=== PATIENT | male | born 1955 | race Caucasian/White ===

== ENCOUNTER 2018-03-13 14:23 | Observation (INO) | payer SELFPAY ==
[2018-03-13] VITALS (12 sets, daily range): BP systolic 123–145; BP diastolic 76–87; PULSE 63–78; RESP 15–20; TEMP 36.5–36.6; O2SAT 96–99; BMI 24.8; BMI 23.0; BMI 23.8
--- NOTE | 2018-03-13 14:31 | NURSING ---
NO OLD EKGS
--- NOTE | 2018-03-13 14:50 | CT_ITS ---
STUDY: CT BRAIN WITHOUT CONTRAST REASON FOR EXAM: Male, 62 years old. Confusion, difficulty speaking. RADIATION DOSAGE (If Supplied By Facility): CTDIvol = ( 35.74 ) mGy, DLP = ( 816.14 ) mGycm TECHNIQUE: Transaxial CT imaging of the brain was performed without administration of intravenous contrast material. Individualized dose optimization techniques were used for this CT. COMPARISON: MRI brain 06/23/2016. FINDINGS: Normal soft tissue structures. Normal calvarium. Normal size ventricles and extra-axial spaces for the patient's age. Normal white matter tracts of the cerebral hemispheres. Normal basal ganglia and thalami. Normal brainstem. Normal cerebellum. There is no intracranial hemorrhage. There are no findings of an acute ischemic infarction. There is mild mucosal thickening in the maxillary sinuses bilaterally. CT/Brain/Head without Contrast IMPRESSION: No intracranial abnormality. Trace chronic maxillary sinusitis. Electronically Signed: Silvana Hong MD at 16:10 EST Tel , Service support ,
--- NOTE | 2018-03-13 14:50 | EKG12_ITS ---
Test Reason : NEURO SYMPTOMS Blood Pressure : / mmHG Vent. Rate : 073 BPM Atrial Rate : 073 BPM P-R Int : 168 ms QRS Dur : 120 ms QT Int : 386 ms P-R-T Axes : 052 -79 070 degrees QTc Int : 425 ms Normal sinus rhythm with sinus arrhythmia Left axis deviation Right bundle branch block Abnormal ECG Confirmed by CORAZON FERRO, RADHA ([id number]), videotape editor JENNIE SIMPSON ([id number]) on 03/15/2018 4:21:01 PM Referred By: Archie Trujillo Confirmed By:RADHA CHANDRA MD
--- NOTE | 2018-03-13 15:05 | RAD_ITS ---
STUDY: X-RAY CHEST REASON FOR EXAM: Male, 62 years old. CVA cough. TECHNIQUE: Portable chest. COMPARISON: None. FINDINGS: The lungs are clear and expanded. There is no demonstrated pleural abnormality. Normal size heart. Normal mediastinum and joshua. Normal visualized pulmonary arteries. Normal visualized aortic arch and descending thoracic aorta. Normal visualized thoracic spine. Normal visualized ribs, clavicles, and shoulders. There is no demonstrated abnormality of the visualized soft tissue structures of the upper abdomen. RAD/Chest 1 View IMPRESSION: Normal x-ray examination of the chest. Electronically Signed: Silvana Hong MD at 16:36 EST Tel , Service support ,
[2018-03-13 15:15] LABS: Absolute Lymphocyte Count 2.45 X10^3/ul (0.83-4.51); Absolute Neutrophil Count 2.8 X10^3/uL (2.0-7.7); Basophil# 0.02 X10^3/uL; Basophil% 0.3 % (0-1); Eosinophil# 0.08 X10^3/uL; Eosinophils% 1.4 % (0-5); Hematocrit 44.7 % (40-54); Hemoglobin 14.4 g/dl (13.0-16.5); Lymphocyte # 2.45 X10^3/ul (4.0); Mean Corp Hgb Conc 32.2 g/gl (32-36); Mean Corpuscular Hgb 29.8 pg (27.0-32.0); Mean Corpuscular Volume 92.4 fL (80-94); Mean Platelet Vol. 9.5 fl (6.2-12.0); Monocyte# 0.44 X10^3/uL; Monocyte% 7.5 % (0-10); Neutrophil # 2.84 X10^3/uL (2.7-7.7); Neutrophil % 48.6 % (47-70); POSITIVE COUNT NO; POSITIVE DIFFERENTIAL NO; POSITIVE MORPHOLOGY NO; Platelet Count 304 K/mm3 (150-450); RBC Distribution Width CV 13.5 % (11.6-14.6); RBC Distribution Width SD 45.8 fl (35.1-43.9); Red Blood Count 4.84 M/mm3 (4.6-6.2); White Blood Count 5.8 K/mm3 (4.4-11.0)
--- NOTE | 2018-03-13 15:17 | ED.VISSUMM ---
- ER Visit Summary Date of Service: 03/13/18 Chief Complaint: Speech difficulty History of Present Illness: The patient is a 62 M presenting for evaluation secondary to speech difficulty. 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 Patient states that this was associated with feelings of diaphoresis and lightheadedness. Patient states that initially the word finding difficulty was relatively significant but it has since improved but is still somewhat present. He denies any visual changes numbness or weakness associated with this. Patient does state that he had a significant head injury 10 years ago and does suffer some issues from that, but denies any cardiovascular or cerebrovascular risk factors. He does have some hypothyroidism. Physical Examination: Vital signs are within normal limits, patient is afebrile. General: Patient is well-nourished well-developed and in no acute distress. Head: Normocephalic, atraumatic Eyes: Pupils equal round and reactive bilaterally, extra occular motion intact bialterally ENT: Moist mucous membranes Neck: Supple, no lymphadenopathy, no JVD, no meningismus CVS: Heart regular rate and rhythm, no murmurs, rubs or gallops, radial pulses 2+ bilaterally Resp: Respirations nondistressed, lung sounds clear bilaterally Abdomen: Soft, nontender, nondistended, no palpable masses, normal bowel sounds Back: Nontender Extremities: Nontender, atraumatic, active full range of motion, no peripheral edema Skin: warm, no rashes, no petechia Neuro: Alert and oriented x 4, CN 2-12 intact, no lateralizing neurological defecits, NIH stroke scale is 0 Psyc: Normal affect Test Results: EKG shows a sinus rate of 73 with a right bundle branch block, left axis deviation, no evidence of acute ischemia or arrhythmia. CBC, chemistry, troponin found to be unremarkable. CT brain shows no intracranial pathology and shows chronic maxillary sinusitis Emergency Department Course and Treatment: Patient presented with complaints of expressive aphasia is NIH on presentation was 0. Stroke workup as noted above is negative. Patient's ABCD 2 score is 5. I do believe that he warrants further observation for further workup. Disposition: Admission Impression: 1. TIA with expressive aphasia This note was generated with [employer] software. It may contain incorrect words, spelling, and punctuation that were not noted in review of the chart prior to signing ED Disposition - Plan for ED Patient: Chief Complaint: Neuro S/Sx Referrals: Fan Florentino DO [Primary Care Provider] -
[2018-03-13 15:21] LABS: Bedside Glucose 165 mg/dL (70-110)
[2018-03-13 15:21] LABS: Partial Thromboplast Time 28.9 Seconds (24.1-36.2)
[2018-03-13 15:35] LABS: Anion Gap 12 (5-15); BUN 17 mg/dL (7-18); BUN/Creat Ratio 16.3 RATIO (10-20); Chloride 102 mmol/L (98-107); Creatinine, Serum 1.04 mg/dL (0.70-1.30); EST Glomerular Filtration Rate 77 mL/min (>60); Est Glom Filt Rate - Afr Amer 93 mL/min (>60); Estimated Creatinine Clearance 74.59 ml/min; Glucose 150 mg/dL (74-106); Potassium 3.7 mmol/L (3.5-5.1); Sodium Level 142 mmol/L (136-145)
--- NOTE | 2018-03-13 16:49 | NURSING ---
PCU OBS TIA PUSHPA
--- NOTE | 2018-03-13 17:17 | PCM.HP.STD ---
Problem List (1) Speaking difficulty Status: Acute History of Present Illness Date of Admission: 03/13/18 Chief Complaint: Speech difficulty The patient is a 62 year old M who was seen in the emergency room at [facility] with a chief complaint of difficulty speaking today in front of his restorationism, patient is a emergency service worker, he states he was unable to come up with words even though he tried to think of them. Patient denies any slurring of speech, he denies any focal motor weakness, he denies any visual problems. Patient states that he is actually had similar problems for the past 10 years, he has not told his that when talking to people in private he sometimes has difficulty coming up with words. Patient states that he had head trauma 10 years ago-he sustained a fall on ice and struck the back of his head and then a short time later within a week he was struck by a tree branch on the front of his face that knocked him down. Patient states since that time, he has not felt right-patient states his thought processes are foggy sometimes and at times he has problems with balance. Patient went to see an ENT physician this year who ordered an MRI of the brain which showed evidence of sinusitis but no other pathology. Patient saw the ENT physician because he felt as if there was fluid in his ear. Workup in the emergency room included labs which showed a normal CBC, chemistry panel was remarkable for a blood sugar of 150, CT of the brain was unremarkable except for trace chronic maxillary sinusitis. Chest x-ray was unremarkable. Patient's NIH score was 0. On examination, this examiner did not detect any speech difficulties, there were no focal motor deficits noted on examination. Patient will be placed in observation status on PCU, an MRI of the brain will be obtained tomorrow, MRA of the head neck will be obtained tomorrow, and I feel the patient should have an EEG. I do not think that the patient needs to be placed on a statin or an aspirin, I think it is unlikely given his history that this is an acute problem. Past Medical History Allergies No Known Allergies Allergy (Verified 03/13/18 14:26) Home Medications: Ambulatory Orders Medication Instructions Recorded Levothyroxine [Synthroid] 112 mcg PO DAILY 03/13/18 Surgical History: noncontributory Psychiatric History: No pertinent psych hx Lives: Spouse/ Significant Other Smoking Status: Never smoker Tobacco Use: Non-smoker Alcohol: None Drugs: None - *Family History Maternal History Items: Cancer - Colon cancer Paternal History Items: No pertinent history Review of Systems Constitutional: Denies: Anorexia, Chills, Fever, Night Sweats, Malaise, Weakness, Weight Change, Fatigue Eyes: Denies: Cataracts, Conjunctivae Inflammation, Double vision, Drainage HEENT: Denies: Difficulty Swallowing, Dysphasia, Ear Pain, Eye Pain, Hard of Hearing, Head Aches, Hearing Changes, Nasal bleeding, Nasal Congestion, Post Nasal Drip Cardiovascular: Denies: Chest Pain, Claudication, Chest Pressure, Chest Tightness, Edema, Palpitations Respiratory: Denies: Cough, Hemoptysis, Pleuritic Pain, Shortness of Breath, Shortness of breath at rest, Shortness of breath upon exertion Gastrointestinal: Denies: Abdominal Pain, Constipation, Diarrhea, Hematemesis, Hematochezia, Nausea, Melena, Vomiting Genitourinary: Denies: Dysuria, Frequency, Hematuria, Hesitancy, Urgency Musculoskeletal: Denies: Back Pain, Foot Pain, Hand Pain, Joint Pain, Joint stiffness, Joint swelling, Joint Tenderness, Leg Pain Skin: Denies: Dryness, Jaundice, Pruritis, Rash Neurological: Reports: Balance problems - Patient gives a history of chronic intermittent balance problems, Change in Speech - See chief complaint. Denies: Blurred vision, Double vision, Slurred speech, Difficulty swallowing, Focal weakness, Numbness, Tingling, Tremor, Seizures Psychiatric: Denies: Anxiety, Depression, Homicidal Ideations, Suicidal Ideations Endocrine: Denies: Change in Body Habitus, Heat/ Cold Intolerance, Polydipsia, Polyuria, Hx of Irradiation Hematologic/ Lymphatic: Denies: Adenopathy, Anemia, Easy Bruising, Easy Bleeding, Petechiae, Purpura VTE Information - Inpt Only VTE Present on Admission: No VTE Mechan Device Prophylaxis: None VTE Pharm Prophylaxis ordered?: No Reason prophylaxis not ordered:: Treatment Not Indicated - Low risk for VTE Patient Problems: Active and Suspected Problems Speaking difficulty (Acute) - Physical Exam General: Alert, Oriented x3, Cooperative, No apparent distress, Well developed, Well nourished HEENT: Atraumatic, PERRLA, EOMI, Normocephalic Oral: Moist Mucosa Neck: Supple, No JVD, Negative Carotid Bruits, No Nuchal Rigidity, Trachea Midline, Thyroid Normal Size and Texture Lungs: Clear to auscultation, Normal air movement, No rhonchi, No wheeze, No rales Cardiovascular: Regular rate, Regular Rhythm, Normal S1, Normal S2, No murmurs, No Ectopic Activity, PMI Normal, No rub noted, No Gallop Abdomen: Bowel Sounds Present, Soft, Non Tender, Non-Distended, No hernias noted Extremities: No clubbing, No cyanosis, No edema, Capillary Refill Less than 3 Seconds Skin: No rashes, No breakdown Musculoskeletal: No Tenderness to Palpation of Joints or Extremities Neurological: Cranial nerves II-XII grossly intact, Neuro grossly intact, Motor Exam 5/5 strength throughout, Muscle tone normal, Sensory exam intact to light touch and pain, Coordination normal Psych/Mental Status: Normal Affect, Appropriate, Alert and oriented to time, place, person, mood and affect Vital Signs Temp Pulse Resp BP Pulse Ox 97.7 F L 75 15 131/76 H 99 03/13/18 14:24 03/13/18 17:00 03/13/18 17:00 03/13/18 17:00 03/13/18 17:00 Oxygen Delivery Method Room Air Weight: 76.3 kg Body Mass Index (BMI) 24.8 Finger Stick Blood Glucose 165 Laboratory Tests Past 24 Hrs 03/13/18 03/13/18 03/13/18 15:00 15:00 15:00 WBC 5.8 RBC 4.84 Hgb 14.4 Hct 44.7 MCV 92.4 MCH 29.8 MCHC 32.2 RDW 13.5 RDW Differential 45.8 H Plt Count 304 MPV 9.5 Immature Gran % (Auto) 0.200 Neut % (Auto) 48.6 Lymph % (Auto) 42.0 [place] % (Auto) 7.5 Eos % (Auto) 1.4 Baso % (Auto) 0.3 Absolute Neuts (auto) 2.8 Absolute Lymphs (auto) 2.45 Total Counted Not Reportable PT 13.0 INR 1.0 APTT 28.9 Sodium 142 Potassium 3.7 Chloride 102 Carbon Dioxide 28.0 Anion Gap 12 BUN 17 Creatinine 1.04 Estim Creat Clear Calc 74.59 Est GFR (MDRD) Af Amer 93 Est GFR (MDRD) Non-Af 77 BUN/Creatinine Ratio 16.3 Glucose 150 H Calcium 9.0 Troponin I < 0.015 POC Glucose 03/13/18 15:15 POC Glucose 165 H Assessment/Plan All Active Problems Speaking difficulty (Acute) #1 expressive aphasia-this may be a chronic problem rather than an acute problem, on examination I see no signs of any expressive aphasia. Patient will be placed in observation status on PCU, he will undergo an MRI of the brain, and MRA of the head and neck, and have an EEG performed. Again, I do not think the patient needs to be placed on a statin or an aspirin, I do not think the patient needs an echocardiogram. Again, in talking with the patient, this problem with speech appears to be a chronic problem over the last several years. I do not think neurology needs to see the patient. Patient will be seen by PT OT and speech therapy #2 hypothyroidism #3 mild elevation in blood sugar-hemoglobin A1c will be ordered Code Visit OBSV E&M: 79212 Initial observation care L3
[2018-03-13 18:02] LABS: Thyroid Stim Hormone (TSH) 2.59 uIU/mL (0.358-3.74)
[2018-03-13 20:46] LABS: Hemoglobin A1c 6.7 % (4.2-6.3)
[2018-03-14] VITALS (7 sets, daily range): BP systolic 114–137; BP diastolic 73–80; PULSE 55–76; RESP 16; TEMP 36.1–36.6; O2SAT 95–97; BMI 23.8
[2018-03-14] MEDS: Levothyroxine 112 MCG Tablet PO (05:50)
--- NOTE | 2018-03-14 05:55 | MRI_ITS ---
STUDY: MRI BRAIN WITHOUT CONTRAST REASON FOR EXAM: Male, 62 years old. APHASIA, CVA x 1 day, hx head trauma 10 years ago TECHNIQUE: Standardized multiplanar fat and water weighted pulse sequences were obtained. COMPARISON: Mar 13 2018 FINDINGS: Normal size of the ventricles and extra-axial spaces for the patient's age. Normal white matter tracts of the supratentorial brain. Normal bilateral basal ganglia. Normal thalami. There is no extra-axial fluid accumulation. Normal flow voids within the major intracranial circulation suggesting patency by spin echo criteria. Normal sella turcica, pituitary gland, infundibular stalk, optic chiasm and hypothalamus. Normal tectal plate and pineal gland. Normal midbrain, rogelio and medulla. Normal cerebellum. Normal basal cisterns. Normal bilateral temporal bones. Normal bilateral internal auditory canals. No demonstrated orbital abnormality, within the constraints of a routine brain study. Normal visualized paranasal sinuses. Normal calvarium and skull base. Normal visualized soft tissue structures. Normal visualized upper cervical spine. MRI/Brain without Contrast IMPRESSION: Normal unenhanced MRI of the brain. Electronically Signed: Gladys Garcia MD at 13:09 EST Tel , Service support ,
--- NOTE | 2018-03-14 05:55 | MRI_ITS ---
STUDY: MRA NECK WITH AND WITHOUT CONTRAST REASON FOR EXAM: Male, 62 years old. APHASIA, CVA -- x 1 day, hx head trauma 10 years ago. TECHNIQUE: 3-D [id number] (TOF) imaging was performed in an 1.5 T MRI scanner. 7 ml of Gadavist was administered for the contrast enhanced images. COMPARISON: None. FINDINGS: RIGHT CAROTID ARTERIES: Normal right common carotid artery (CCA). Normal right common carotid bulb. Normal origin of the right internal carotid (ICA) artery without a hemodynamically significant stenosis. Normal visualized cervical portion of the right internal carotid artery. Normal origin of the right external carotid artery (ECA). LEFT CAROTID ARTERIES: Normal left common carotid artery (CCA). Normal left common carotid bulb. Normal origin of the left internal carotid (ICA) artery without a hemodynamically significant stenosis. Normal visualized cervical portion of the left internal carotid artery. Normal origin of the left external carotid artery (ECA). VERTEBRAL ARTERIES: There is antegrade flow within the bilateral vertebral arteries with a small right vertebral artery, and a dominant left vertebral artery. MRI/MRA Neck WITH and W/O Contrast IMPRESSION: Unremarkable bilateral cervical carotid and vertebral arteries. Electronically Signed: Gladys Garcia MD at 13:15 EST Tel , Service support ,
--- NOTE | 2018-03-14 05:55 | MRI_ITS ---
STUDY: MRA OF THE HEAD WITHOUT CONTRAST REASON FOR EXAM: Male, 62 years old. APHASIA, CVA x 1 day, hx head trauma 10 years ago TECHNIQUE: 3-D [id number]-yo-kbqtee (TOF) imaging was performed with MIPs. The study was performed unenhanced. COMPARISON: None. FINDINGS: Normal bilateral petrous carotid arteries. Normal right cavernous carotid artery with a normal supraclinoid bifurcation. Normal left cavernous carotid artery with a normal supraclinoid bifurcation. Normal right A1 segments of the anterior cerebral artery. Normal left A1 segments of the anterior cerebral artery. Normal intact anterior communicating artery (ACOM). Normal bilateral A2 segments of the anterior cerebral arteries. Normal right M1 and M2 segments of the middle cerebral arteries, with a normal M1 bifurcation. Normal left M1 and M2 segments of the middle cerebral arteries, with a normal M1 bifurcation. There is non-visualization of the right posterior communicating artery (PCOM). Normal left posterior communicating artery (PCOM). Normal bilateral vertebral arteries. Normal basilar artery with a normal basilar bifurcation. The visualized bilateral superior cerebellar (SCA) arteries are normal. Normal bilateral P1, P2 and visualized P3 segments of the posterior cerebral arteries. There is no demonstrated aneurysm of the [place]. There is no major vessel occlusion or hemodynamically significant stenosis. There is no demonstrated abnormality of the visualized brain. MRI/MRA Head ONLY without Contrast IMPRESSION: Normal MRA of the head Electronically Signed: Gladys Garcia MD at 13:11 EST Tel , Service support ,
--- NOTE | 2018-03-14 06:51 | PCM.PROGNOTE ---
Patient Problems: Active and Suspected Problems Speaking difficulty (Acute) Subjective: Mr. 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 He denied slurring of speech and denied any focal motor deficits. He denied any visual problems. He stated he actually had similar problems for the past 10 years with word finding. He admitted to a head trauma 10 years ago when he fell on the ice and struck the back of his head. He stated that he has not felt right since that fall 10 years ago. Workup in the emergency room was remarkable for a blood sugar of 150. CT brain was unremarkable. NIH was 0. He was admitted for observation to a monitored bed on the progressive care unit and will have an MRI of his brain and MRA of the head and neck. Consultation with occupational therapy, physical therapy and speech therapy was ordered. He has been afebrile since admission. Vital signs are stable. All laboratory was personally reviewed. Hemoglobin A1c is elevated at 6.7 - Physical Exam Vital Signs Temp Pulse Resp BP Pulse Ox 97.8 F 63 16 114/73 95 03/14/18 05:36 03/14/18 05:36 03/14/18 05:36 03/14/18 05:36 03/14/18 05:36 Oxygen Delivery Method Room Air Weight: 160 lb 14.999 oz Body Mass Index (BMI) 23.8 Finger Stick Blood Glucose 165 Intake and Output for Last 24 Hours 03/12/18 03/13/18 03/14/18 23:59 23:59 23:59 Intake Total 250 / 250 50 / 50 Balance 250 / 250 50 / 50 Laboratory Tests Past 24 Hrs 03/13/18 03/13/18 03/13/18 15:00 15:00 15:00 WBC 5.8 RBC 4.84 Hgb 14.4 Hct 44.7 MCV 92.4 MCH 29.8 MCHC 32.2 RDW 13.5 RDW Differential 45.8 H Plt Count 304 MPV 9.5 Immature Gran % (Auto) 0.200 Neut % (Auto) 48.6 Lymph % (Auto) 42.0 H [place] % (Auto) 7.5 Eos % (Auto) 1.4 Baso % (Auto) 0.3 Absolute Neuts (auto) 2.8 Absolute Lymphs (auto) 2.45 Total Counted Not Reportable PT 13.0 INR 1.0 APTT 28.9 Sodium 142 Potassium 3.7 Chloride 102 Carbon Dioxide 28.0 Anion Gap 12 BUN 17 Creatinine 1.04 Estim Creat Clear Calc 74.59 Est GFR (MDRD) Af Amer 93 Est GFR (MDRD) Non-Af 77 BUN/Creatinine Ratio 16.3 Glucose 150 H Hemoglobin A1c Calcium 9.0 Troponin I < 0.015 TSH 03/13/18 03/13/18 15:00 15:00 WBC RBC Hgb Hct MCV MCH MCHC RDW RDW Differential Plt Count MPV Immature Gran % (Auto) Neut % (Auto) Lymph % (Auto) [place] % (Auto) Eos % (Auto) Baso % (Auto) Absolute Neuts (auto) Absolute Lymphs (auto) Total Counted PT INR APTT Sodium Potassium Chloride Carbon Dioxide Anion Gap BUN Creatinine Estim Creat Clear Calc Est GFR (MDRD) Af Amer Est GFR (MDRD) Non-Af BUN/Creatinine Ratio Glucose Hemoglobin A1c 6.7 H Calcium Troponin I TSH 2.59 POC Glucose 03/13/18 15:15 POC Glucose 165 H Medical Necessity - Tobacco Use Smoking Status: Never smoker Tobacco Use: Non-smoker Assessment/Plan All Active Problems Speaking difficulty (Acute)
--- NOTE | 2018-03-14 14:02 | DCINST_ITS ---
- Discharge Diagnoses Current Active Problems: Current Active and Chronic Problems Speaking difficulty (Acute) You will use the following diet at home:: Calorie/Carbohydrate Controlled (specify 1200, 1400, etc) Discharge Activity: Return to Normal Activity Call your doctor if you observe: Numbness or Tingling, Shortness of breath, Dizziness, Fainting spells, Chest pain Allergies/Adverse Reactions: Allergies No Known Allergies Allergy (Verified 03/13/18 14:26) Medications to take at Discharge Levothyroxine [Synthroid] 112 mcg PO DAILY 03/13/18 Metformin(XR) [Glucophage Xr] 500 mg PO DAILY #30 tablet 03/14/18 The following prescriptions were given: Metformin(XR) [Glucophage Xr] 500 mg PO DAILY #30 tablet Primary Care Physician: Fan Florentino DO [Primary Care Provider] - Please follow up with your Primary Care Physician in: 1 Week Test Results: Test results from this visit will be discussed in further detail at your follow- up appointment, if applicable. Please Follow Up With: Herberth Callaway MD When: 1-2 Weeks or as needed Please Follow Up With: Bill Angela MD When: 1-2 Weeks Proposed Discharge Date: 03/14/18
--- NOTE | 2018-03-14 14:03 | PCM.DC.SUM ---
<Michelle Matthews - Last Filed: 03/14/18 14:12> Discharge Date and Diagnosis Date of Admission: 03/13/18 Date of Discharge: 03/14/18 - Primary Discharge Diagnosis Active and Suspected Problems 1. Expressive aphasia, chronic-CVA ruled out 2. Type 2 diabetes mellitus, new diagnosis 3. Hypothyroidism Hospital Course and Treatment Imaging Results: Diagnostic Data Brain CT 03/13/18 14:50 IMPRESSION: No intracranial abnormality. Trace chronic maxillary sinusitis. Electronically Signed: Silvana Hong MD at 16:10 EST Tel , Service support , Chest X-Ray 03/13/18 15:05 IMPRESSION: Normal x-ray examination of the chest. Electronically Signed: Silvana Hong MD at 16:36 EST Tel , Service support , Brain MRI 03/14/18 05:55 IMPRESSION: Normal unenhanced MRI of the brain. Electronically Signed: Gladys Garcia MD at 13:09 EST Tel , Service support , Head MRA 03/14/18 05:55 IMPRESSION: Normal MRA of the head Electronically Signed: Gladys Garcia MD at 13:11 EST Tel , Service support , Neck MRA 03/14/18 05:55 IMPRESSION: Unremarkable bilateral cervical carotid and vertebral arteries. Electronically Signed: Gladys Garcia MD at 13:15 EST Tel , Service support , Operations: None Procedures: None Summary of Care Provided: The patient is a 62 year old M who presents emergency room due to speech difficulty. Patient did not have slurred speech, focal weakness, facial droop or other neurologic symptoms. Patient reports he has had expressive aphasia for 10 years following a head trauma. He states he has seen multiple neurologist, ENT and had a neck specialist who could not to give him a diagnosis. He feels fluid in his left ear and says he can taste it. Patient states his presenting symptoms are not different than his ongoing symptoms for the past [address] unremarkable. MRI of brain normal. Neck MRA showed normal bilateral cervical and vertebral arteries. CVA ruled out. PT evaluated patient and did not note any disabilities. EEG completed, report pending. Recommend follow-up with neurology. Patient has seen Dr. Jo in the past and requests to see Dr. Angela. Patient was noted to have elevated glucose. Hemoglobin A1c 6.7%. Patient was started on metformin 500 mg daily for new diagnosis type 2 diabetes mellitus. His other past medical history includes hypothyroidism. TSH within normal limits. Patient will follow up with primary care physician in 1 week. Follow-up with neurology in 1-2 weeks. Patient will also follow-up with ENT given the ongoing complaint of fluid in left ear. Refer to Dr. Callaway. General: Alert, Oriented x3, Cooperative, No apparent distress HEENT: Atraumatic, PERRLA, EOMI, Normocephalic Oral: Moist Mucosa Neck: Supple, No JVD, Negative Carotid Bruits, No Nuchal Rigidity, Trachea Midline Lungs: Clear to auscultation, Normal air movement, No rhonchi, No wheeze, No rales Cardiovascular: Regular rate, Regular Rhythm, Normal S1, Normal S2, No murmurs Abdomen: Bowel Sounds Present, Soft, Non Tender, Non-Distended Extremities: No clubbing, No cyanosis, No edema, Capillary Refill Less than 3 Seconds Skin: No rashes, No breakdown Musculoskeletal: No Tenderness to Palpation of Joints or Extremities Neurological: Cranial nerves II-XII grossly intact, Neuro grossly intact, Motor Exam 5/5 strength throughout, Muscle tone normal Psych/Mental Status: Normal Affect, Appropriate Patient seen and examined prior to discharge. Physical assessment as noted above. Patient stable for discharge home with the follow-up recommendations as noted above. This patient was seen by CORINNE Bradley under the supervision of Dr. Arteaga. - Physical Exam Vital Signs Temp Pulse Resp BP Pulse Ox 97 F L 76 16 137/80 H 97 03/14/18 12:28 03/14/18 12:28 03/14/18 12:28 03/14/18 12:28 03/14/18 12:28 Oxygen Delivery Method Room Air Weight: 160 lb 14.999 oz Body Mass Index (BMI) 23.8 Finger Stick Blood Glucose 165 Intake and Output for Last 24 Hours 03/12/18 03/13/18 03/14/18 23:59 23:59 23:59 Intake Total 250 / 250 290 / 290 Balance 250 / 250 290 / 290 Laboratory Tests Past 24 Hrs 03/13/18 03/13/18 03/13/18 15:00 15:00 15:00 WBC 5.8 RBC 4.84 Hgb 14.4 Hct 44.7 MCV 92.4 MCH 29.8 MCHC 32.2 RDW 13.5 RDW Differential 45.8 H Plt Count 304 MPV 9.5 Immature Gran % (Auto) 0.200 Neut % (Auto) 48.6 Lymph % (Auto) 42.0 H [place] % (Auto) 7.5 Eos % (Auto) 1.4 Baso % (Auto) 0.3 Absolute Neuts (auto) 2.8 Absolute Lymphs (auto) 2.45 Total Counted Not Reportable PT 13.0 INR 1.0 APTT 28.9 Sodium 142 Potassium 3.7 Chloride 102 Carbon Dioxide 28.0 Anion Gap 12 BUN 17 Creatinine 1.04 Estim Creat Clear Calc 74.59 Est GFR (MDRD) Af Amer 93 Est GFR (MDRD) Non-Af 77 BUN/Creatinine Ratio 16.3 Glucose 150 H Hemoglobin A1c Calcium 9.0 Troponin I < 0.015 TSH 03/13/18 03/13/18 15:00 15:00 WBC RBC Hgb Hct MCV MCH MCHC RDW RDW Differential Plt Count MPV Immature Gran % (Auto) Neut % (Auto) Lymph % (Auto) [place] % (Auto) Eos % (Auto) Baso % (Auto) Absolute Neuts (auto) Absolute Lymphs (auto) Total Counted PT INR APTT Sodium Potassium Chloride Carbon Dioxide Anion Gap BUN Creatinine Estim Creat Clear Calc Est GFR (MDRD) Af Amer Est GFR (MDRD) Non-Af BUN/Creatinine Ratio Glucose Hemoglobin A1c 6.7 H Calcium Troponin I TSH 2.59 POC Glucose 03/13/18 15:15 POC Glucose 165 H Discharge Diet: Carb Control Diet Discharge Activity: Return to Normal Activity Call your doctor if you observe: Numbness or Tingling, Shortness of breath, Dizziness, Fainting spells, Chest pain Home Medications: Medications to take at Discharge Levothyroxine [Synthroid] 112 mcg PO DAILY 03/13/18 Metformin(XR) [Glucophage Xr] 500 mg PO DAILY #30 tablet 03/14/18 Following Prescrptions Were Given to Patient: Metformin(XR) [Glucophage Xr] 500 mg PO DAILY #30 tablet Primary Care Physician: Fan Florentino DO [Primary Care Provider] - Please follow up with your Primary Care Physician in: 1 Week Please Follow Up With: Herberth Callaway MD When: 1-2 Weeks or as needed Please Follow Up With: Bill Angela MD When: 1-2 Weeks Disposition: Home Minutes spent on discharge:: 35 Patient Condition:: Stable Medical Necessity - Tobacco Use Smoking Status: Never smoker Tobacco Use: Non-smoker Meaningful Use Info Meaningful Use Diagnoses (Choose all that apply): None applicable <Shari Arteaga - Last Filed: 03/14/18 16:20> Hospital Course and Treatment Summary of Care Provided: Patient seen and examined by Michelle SUN under my supervision The patient is a 62 year old M was admitted with a complaint of difficulty with finding words. Patient was that he has had this expressive aphasia for 10 years following her trauma he has seen multiple neurologists and other specialist who could not give him a diagnosis. He said he was in charge when he started having this difficulty finding was read to him was not chronic but his charge members insisted that he come to the hospital to be checked out for stroke. Brain CT was unremarkable and MRI of the brain was also normal. MRA of the neck was also negative for any stenosis. EEG was ordered and was done but report was pending at the time of review. Patient remained stable and was discharged home on 03/14/2018 to follow-up with neurology and his primary care doctor. Patient seen and examined prior to discharge. He had no complaints and felt well. He was dressed and ready to leave. He denied any fever chills, any cough or chest pain, shortness of breath, abdominal pain, and diarrhea vomiting. Review of systems otherwise negative. Labs and vitals reviewed. Home medications reviewed and reconciled. On Examination Vital Signs Height 5 ft 9 in Weight: 160 lb 14.999 oz Weight in Pounds 160.9 lbs Pulse Ox 97 Temperature 97 F Pulse Rate 76 Respiratory Rate 16 Blood Pressure 137/80 Blood Pressure Position Semi-Fowlers General: Alert, Oriented x3, Cooperative, No apparent distress HEENT: Atraumatic, PERRLA, EOMI, Normocephalic Oral: Moist Mucosa Neck: Supple, No JVD, Negative Carotid Bruits, No Nuchal Rigidity, Trachea Midline Lungs: Clear to auscultation, Normal air movement, No rhonchi, No wheeze, No rales Cardiovascular: Regular rate, Regular Rhythm, Normal S1, Normal S2, No murmurs Abdomen: Bowel Sounds Present, Soft, Non Tender, Non-Distended Extremities: No clubbing, No cyanosis, No edema, Capillary Refill Less than 3 Seconds Skin: No rashes, No breakdown Musculoskeletal: No Tenderness to Palpation of Joints or Extremities Neurological: Cranial nerves II-XII grossly intact, Neuro grossly intact, Motor Exam 5/5 strength throughout, Muscle tone normal Psych/Mental Status: Normal Affect, Appropriate Plan as discussed above. Agree with above note, assessment and plan by Michelle Matthews CRIMINAL JUDGE-C [] - Physical Exam Vital Signs Temp Pulse Resp BP Pulse Ox 97 F L 76 16 137/80 H 97 03/14/18 12:28 03/14/18 12:28 03/14/18 12:28 03/14/18 12:28 03/14/18 12:28 Oxygen Delivery Method Room Air Weight: 160 lb 14.999 oz Body Mass Index (BMI) 23.8 Finger Stick Blood Glucose 165 Intake and Output for Last 24 Hours 03/12/18 03/13/18 03/14/18 23:59 23:59 23:59 Intake Total 250 / 250 290 / 290 Balance 250 / 250 290 / 290 Laboratory Tests Past 24 Hrs 03/13/18 03/13/18 15:00 15:00 Hemoglobin A1c 6.7 H TSH 2.59 Code Visit Inpatient E&M: 98823 Disch Hosp
--- NOTE | 2018-03-14 14:12 | DS.PCM_ITS ---
<Michelle Matthews - Last Filed: 03/14/18 14:12> Discharge Date and Diagnosis Date of Admission: 03/13/18 Date of Discharge: 03/14/18 - Primary Discharge Diagnosis Active and Suspected Problems 1. Expressive aphasia, chronic-CVA ruled out 2. Type 2 diabetes mellitus, new diagnosis 3. Hypothyroidism Hospital Course and Treatment Imaging Results: Diagnostic Data Brain CT 03/13/18 14:50 IMPRESSION: No intracranial abnormality. Trace chronic maxillary sinusitis. Electronically Signed: Silvana Hong MD at 16:10 EST Tel , Service support , Chest X-Ray 03/13/18 15:05 IMPRESSION: Normal x-ray examination of the chest. Electronically Signed: Silvana Hong MD at 16:36 EST Tel , Service support , Brain MRI 03/14/18 05:55 IMPRESSION: Normal unenhanced MRI of the brain. Electronically Signed: Gladys Garcia MD at 13:09 EST Tel , Service support , Head MRA 03/14/18 05:55 IMPRESSION: Normal MRA of the head Electronically Signed: Gladys Garcia MD at 13:11 EST Tel , Service support , Neck MRA 03/14/18 05:55 IMPRESSION: Unremarkable bilateral cervical carotid and vertebral arteries. Electronically Signed: Gladys Garcia MD at 13:15 EST Tel , Service support , Operations: None Procedures: None Summary of Care Provided: The patient is a 62 year old M who presents emergency room due to speech difficulty. Patient did not have slurred speech, focal weakness, facial droop or other neurologic symptoms. Patient reports he has had expressive aphasia for 10 years following a head trauma. He states he has seen multiple neurologist, ENT and had a neck specialist who could not to give him a diagnosis. He feels fluid in his left ear and says he can taste it. Patient states his presenting symptoms are not different than his ongoing symptoms for the past [address] unremarkable. MRI of brain normal. Neck MRA showed normal bilateral cervical and vertebral arteries. CVA ruled out. PT evaluated patient and did not note any disabilities. EEG completed, report pending. Recommend follow-up with neurology. Patient has seen Dr. Jo in the past and requests to see Dr. Angela. Patient was noted to have elevated glucose. Hemoglobin A1c 6.7%. Patient was started on metformin 500 mg daily for new diagnosis type 2 diabetes mellitus. His other past medical history includes hypothyroidism. TSH within normal limits. Patient will follow up with primary care physician in 1 week. Follow-up with neurology in 1-2 weeks. Patient will also follow-up with ENT given the ongoing complaint of fluid in left ear. Refer to Dr. Callaway. General: Alert, Oriented x3, Cooperative, No apparent distress HEENT: Atraumatic, PERRLA, EOMI, Normocephalic Oral: Moist Mucosa Neck: Supple, No JVD, Negative Carotid Bruits, No Nuchal Rigidity, Trachea Midline Lungs: Clear to auscultation, Normal air movement, No rhonchi, No wheeze, No rales Cardiovascular: Regular rate, Regular Rhythm, Normal S1, Normal S2, No murmurs Abdomen: Bowel Sounds Present, Soft, Non Tender, Non-Distended Extremities: No clubbing, No cyanosis, No edema, Capillary Refill Less than 3 Seconds Skin: No rashes, No breakdown Musculoskeletal: No Tenderness to Palpation of Joints or Extremities Neurological: Cranial nerves II-XII grossly intact, Neuro grossly intact, Motor Exam 5/5 strength throughout, Muscle tone normal Psych/Mental Status: Normal Affect, Appropriate Patient seen and examined prior to discharge. Physical assessment as noted above. Patient stable for discharge home with the follow-up recommendations as noted above. This patient was seen by CORINNE Bradley under the supervision of Dr. Arteaga. - Physical Exam Vital Signs Temp Pulse Resp BP Pulse Ox 97 F L 76 16 137/80 H 97 03/14/18 12:28 03/14/18 12:28 03/14/18 12:28 03/14/18 12:28 03/14/18 12:28 Oxygen Delivery Method Room Air Weight: 160 lb 14.999 oz Body Mass Index (BMI) 23.8 Finger Stick Blood Glucose 165 Intake and Output for Last 24 Hours 03/12/18 03/13/18 03/14/18 23:59 23:59 23:59 Intake Total 250 / 250 290 / 290 Balance 250 / 250 290 / 290 Laboratory Tests Past 24 Hrs 03/13/18 03/13/18 03/13/18 15:00 15:00 15:00 WBC 5.8 RBC 4.84 Hgb 14.4 Hct 44.7 MCV 92.4 MCH 29.8 MCHC 32.2 RDW 13.5 RDW Differential 45.8 H Plt Count 304 MPV 9.5 Immature Gran % (Auto) 0.200 Neut % (Auto) 48.6 Lymph % (Auto) 42.0 H [place] % (Auto) 7.5 Eos % (Auto) 1.4 Baso % (Auto) 0.3 Absolute Neuts (auto) 2.8 Absolute Lymphs (auto) 2.45 Total Counted Not Reportable PT 13.0 INR 1.0 APTT 28.9 Sodium 142 Potassium 3.7 Chloride 102 Carbon Dioxide 28.0 Anion Gap 12 BUN 17 Creatinine 1.04 Estim Creat Clear Calc 74.59 Est GFR (MDRD) Af Amer 93 Est GFR (MDRD) Non-Af 77 BUN/Creatinine Ratio 16.3 Glucose 150 H Hemoglobin A1c Calcium 9.0 Troponin I < 0.015 TSH 03/13/18 03/13/18 15:00 15:00 WBC RBC Hgb Hct MCV MCH MCHC RDW RDW Differential Plt Count MPV Immature Gran % (Auto) Neut % (Auto) Lymph % (Auto) [place] % (Auto) Eos % (Auto) Baso % (Auto) Absolute Neuts (auto) Absolute Lymphs (auto) Total Counted PT INR APTT Sodium Potassium Chloride Carbon Dioxide Anion Gap BUN Creatinine Estim Creat Clear Calc Est GFR (MDRD) Af Amer Est GFR (MDRD) Non-Af BUN/Creatinine Ratio Glucose Hemoglobin A1c 6.7 H Calcium Troponin I TSH 2.59 POC Glucose 03/13/18 15:15 POC Glucose 165 H Discharge Diet: Carb Control Diet Discharge Activity: Return to Normal Activity Call your doctor if you observe: Numbness or Tingling, Shortness of breath, Dizziness, Fainting spells, Chest pain Home Medications: Medications to take at Discharge Levothyroxine [Synthroid] 112 mcg PO DAILY 03/13/18 Metformin(XR) [Glucophage Xr] 500 mg PO DAILY #30 tablet 03/14/18 Following Prescrptions Were Given to Patient: Metformin(XR) [Glucophage Xr] 500 mg PO DAILY #30 tablet Primary Care Physician: Fan Florentino DO [Primary Care Provider] - Please follow up with your Primary Care Physician in: 1 Week Please Follow Up With: Herberth Callaway MD When: 1-2 Weeks or as needed Please Follow Up With: Bill Angela MD When: 1-2 Weeks Disposition: Home Minutes spent on discharge:: 35 Patient Condition:: Stable Medical Necessity - Tobacco Use Smoking Status: Never smoker Tobacco Use: Non-smoker Meaningful Use Info Meaningful Use Diagnoses (Choose all that apply): None applicable <Shari Arteaga - Last Filed: 03/14/18 16:20> Hospital Course and Treatment Summary of Care Provided: Patient seen and examined by Michelle SUN under my supervision The patient is a 62 year old M was admitted with a complaint of difficulty with finding words. Patient was that he has had this expressive aphasia for 10 years following her trauma he has seen multiple neurologists and other specialist who could not give him a diagnosis. He said he was in charge when he started having this difficulty finding was read to him was not chronic but his charge members insisted that he come to the hospital to be checked out for stroke. Brain CT was unremarkable and MRI of the brain was also normal. MRA of the neck was also negative for any stenosis. EEG was ordered and was done but report was pending at the time of review. Patient remained stable and was discharged home on 03/14/2018 to follow-up with neurology and his primary care doctor. Patient seen and examined prior to discharge. He had no complaints and felt well. He was dressed and ready to leave. He denied any fever chills, any cough or chest pain, shortness of breath, abdominal pain, and diarrhea vomiting. Review of systems otherwise negative. Labs and vitals reviewed. Home medications reviewed and reconciled. On Examination Vital Signs Height 5 ft 9 in Weight: 160 lb 14.999 oz Weight in Pounds 160.9 lbs Pulse Ox 97 Temperature 97 F Pulse Rate 76 Respiratory Rate 16 Blood Pressure 137/80 Blood Pressure Position Semi-Fowlers General: Alert, Oriented x3, Cooperative, No apparent distress HEENT: Atraumatic, PERRLA, EOMI, Normocephalic Oral: Moist Mucosa Neck: Supple, No JVD, Negative Carotid Bruits, No Nuchal Rigidity, Trachea Midline Lungs: Clear to auscultation, Normal air movement, No rhonchi, No wheeze, No rales Cardiovascular: Regular rate, Regular Rhythm, Normal S1, Normal S2, No murmurs Abdomen: Bowel Sounds Present, Soft, Non Tender, Non-Distended Extremities: No clubbing, No cyanosis, No edema, Capillary Refill Less than 3 Seconds Skin: No rashes, No breakdown Musculoskeletal: No Tenderness to Palpation of Joints or Extremities Neurological: Cranial nerves II-XII grossly intact, Neuro grossly intact, Motor Exam 5/5 strength throughout, Muscle tone normal Psych/Mental Status: Normal Affect, Appropriate Plan as discussed above. Agree with above note, assessment and plan by Michelle Matthews BOTANY TECHNICIAN-C [] - Physical Exam Vital Signs Temp Pulse Resp BP Pulse Ox 97 F L 76 16 137/80 H 97 03/14/18 12:28 03/14/18 12:28 03/14/18 12:28 03/14/18 12:28 03/14/18 12:28 Oxygen Delivery Method Room Air Weight: 160 lb 14.999 oz Body Mass Index (BMI) 23.8 Finger Stick Blood Glucose 165 Intake and Output for Last 24 Hours 03/12/18 03/13/18 03/14/18 23:59 23:59 23:59 Intake Total 250 / 250 290 / 290 Balance 250 / 250 290 / 290 Laboratory Tests Past 24 Hrs 03/13/18 03/13/18 15:00 15:00 Hemoglobin A1c 6.7 H TSH 2.59 Code Visit Inpatient E&M: 70349 Disch Hosp
--- NOTE | 2018-03-18 13:42 | EEG ---
- Electroencephalogram Date of service 03/14/18 This is an 18 channel electroencephalogram performed utilizing EKG reference leads, photic stimulation, hyperventilation and the International 10-20 electrode placement protocol to evaluate for expressive aphasia. Background activity is 8 Hz symmetrically in the posterior leads which attenuates with eye opening. Hyperventilation is performed for 3 minutes with good effort with no lateralizing or epileptiform changes, the patient remained awake throughout the recording. Post hyperventilatory phase was unremarkable. EKG was normal sinus rhythm throughout the recording and photic stimulation generates a normal symmetric drive response in the posterior leads. There are no lateralizing or epileptiform changes noted during this recording. Impression: normal awake electroencephalogram
== END 2018-03-14 14:02 | disposition home or self-care (01) ==
LOC: ED 16:53 → PCU 17:13
PROVIDERS: Admitting Provider Internal Medicine; Emergency Provider Emergency Medicine; Family Provider Family Medicine; PCP Family Medicine; Referring Provider Internal Medicine; Visit Provider Student in an Organized Health Care Education/Training Program
DX: R47.01 Aphasia (principal); E03.9 Hypothyroidism, unspecified; E11.9 Type 2 diabetes mellitus without complications; Z79.899 Other long term (current) drug therapy; R42 Dizziness and giddiness; R29.700 NIHSS score 0
CPT/HCPCS: 70450; 70544; 70549; 70551; 71045; 80048; 82962; 83036; 84443; 84484; 85025; 85610; 85730; 92523; 93005; 97802; 99218; 99283; A9585; A4216; G0378

== ENCOUNTER → 2018-08-05 15:25 | Outpatient (CLI) | payer SELFPAY ==
[2018-03-14 08:37] VITALS: BMI 23.8
[2018-08-05 19:58] LABS: Erythrocyte Sedimentation Rate 12 mm/hr (0-20)
== END ==
PROVIDERS: Referring Provider Clinical Nurse Specialist Acute Care; Visit Provider Clinical Nurse Specialist Acute Care
DX: R51 Headache (principal)
CPT/HCPCS: 36415; 85652

== ENCOUNTER → 2018-08-29 06:57 | Outpatient (CLI) | payer SELFPAY ==
[2018-03-14 08:37] VITALS: BMI 23.8
--- NOTE | 2018-08-31 10:40 | EEG ---
- Electroencephalogram Date of service 08/29/2018 This is an 18 channel electroencephalogram performed utilizing EKG reference leads, photic stimulation and hyperventilation on this 63-year-old male with a history of altered consciousness. The test is performed utilizing the International 10-20 electrode placement protocol. Hyperventilation is performed for 4 minutes with good effort with no lateralizing Repliform changes. The post hyperventilatory phase is unremarkable. The patient remained awake throughout the recording without lateralizing or epileptiform changes. EKG is normal sinus rhythm throughout the recording and photic stimulation demonstrate a normal response. Background activity at 10 Hz symmetrically in the posterior leads which attenuates with eye-opening. Impression: Normal awake electroencephalogram
== END ==
PROVIDERS: Referring Provider Clinical Nurse Specialist Acute Care; Visit Provider Clinical Nurse Specialist Acute Care
DX: R20.2 Paresthesia of skin (principal); R40.4 Transient alteration of awareness
CPT/HCPCS: 95819

== ENCOUNTER → 2020-09-19 08:18 | Outpatient (CLI) | payer SELFPAY ==
[2018-03-14 08:37] VITALS: BMI 23.8
--- NOTE | 2020-09-19 08:27 | RAD_ITS ---
STUDY: X-RAY - ESOPHAGUS (BARIUM SWALLOW) WITH FLUOROSCOPY REASON FOR EXAM: Male, 65 years old. DYSPHAGIA TECHNIQUE: 17 view(s) of the esophagus were obtained following swallowing of barium. FLUOROSCOPY TIME (if supplied): (24 seconds) minutes/seconds COMPARISON: None. FINDINGS: There is no demonstrated esophageal foreign body. There is no demonstrated stricture or mucosal abnormality. Normal gastroesophageal junction, without a demonstrated hiatal hernia. The patient ingested a 12 mm tablet of barium without any difficulty. Normal visualized aortic arch and descending thoracic aorta. Normal visualized pulmonary parenchyma. Normal visualized osseous structures of the thorax. RAD/Esophagus Dual Contrast IMPRESSION: Normal plain film x-ray examination (barium swallow) of the esophagus. Electronically Signed: Bay Coleman MD at 10:40 EDT , Service support ,
== END ==
PROVIDERS: Referring Provider Otolaryngology; Visit Provider Otolaryngology
DX: R13.10 Dysphagia, unspecified (principal); K22.5 Diverticulum of esophagus, acquired
CPT/HCPCS: 74221

== ENCOUNTER → 2023-10-01 | Outpatient (CLI) | payer MEDICARE, SELFPAY ==
--- NOTE | 2023-10-01 08:28 | EKG12_ITS ---
Test Reason : PRE OP Blood Pressure : / mmHG Vent. Rate : 079 BPM Atrial Rate : 079 BPM P-R Int : 132 ms QRS Dur : 122 ms QT Int : 374 ms P-R-T Axes : 054 248 081 degrees QTc Int : 428 ms Normal sinus rhythm Right bundle branch block Abnormal ECG Confirmed by CORAZON FERRO, RADHA ([id number]), publications editor SRIDHAR PÉREZ ([id number]) on 10/04/2023 9:42:16 AM Referred By: Ilya Hanks Confirmed By:RADHA CHANDRA MD
== END | disposition home or self-care (01) ==
LOC: PSN 08:26
PROVIDERS: Referring Provider Specialist; Visit Provider Specialist
DX: Z01.810 Encounter for preprocedural cardiovascular examination (principal); E11.9 Type 2 diabetes mellitus without complications; M16.12 Unilateral primary osteoarthritis, left hip; E07.9 Disorder of thyroid, unspecified
CPT/HCPCS: 93005

== ENCOUNTER → 2024-01-04 | Outpatient (CLI) | payer MEDICARE, SELFPAY ==
--- NOTE | 2024-01-04 11:00 | PET_ITS ---
EXAMINATION: Ga [address] ? INDICATIONS: 68-year-old male with a history of primary prostate carcinoma, presenting for restaging examination. ? COMPARISON EXAMINATION: None available ? TECHNIQUE: Following the intravenous administration of 9.86 mCi of Ga 68 PSMA via the right hand, multiplanar image acquisitions of the head, neck, chest, abdomen and pelvis to the level of the midthigh, bilateral lower extremities to the level of the forefoot obtained at 73 minutes post tracer distribution reveal: ? The examination was interpreted using the EANM (Elicia et al., Journal of Nuclear Medicine Molecular Imaging 44:1622, 2017) and PROMISE (Eiabdiel et al., Journal of Nuclear Medicine 59:469, 2018) interpretive criteria. ? HEIGHT:?? 69 inches WEIGHT:?? 157 pounds ? PSMA expression score PROMISE criteria: High (3): SUV > parotid-salivary gland, intermediate (2): SUV > liver, low (1): > blood pool, < liver, (0): < blood pool. ? SUV reference values: Parotid glands 18.73. Normal liver parenchyma 9.6. Blood pool 2.6. ? FINDINGS: ? HEAD/NECK:? Symmetric radiopharmaceutical concentration is defined in the bilateral parotid and submandibular glands. Physiologic tracer uptake is noted in the nasal cavity. ? There is no evidence of abnormal increased tracer uptake within the context of the cranial vault. ? CHEST:? Facilitated tracer uptake is noted in the bilateral thoracic perihilum. The calculated standard uptake value is 2.1 for a PROMISE Score of 1. ? CT of the chest demonstrates the following anatomic characteristics: Calcification is defined in the thoracic aorta without evidence of aneurysm. Bilateral axillary and mediastinal soft tissue densities demonstrate no evidence of increased tracer uptake. There are no parenchymal densities-nodules defined in the right and left hemithorax with quantitatively significant increased glucose uptake. ? ABDOMEN/PELVIS:? Uniform, homogeneous radiopharmaceutical concentration is defined in the hepatic and splenic parenchyma, visualization of the bilateral renal units, urinary bladder, and visualized intestinal tract. ? CT of the abdomen and pelvis is remarkable for the following: Atherosclerotic calcification is defined in the abdominal aorta without evidence of dilatation, aneurysm formation. Pelvic arterial calcification is observed. A colostomy is defined in the left anterior pelvic wall. Colonic diverticulosis is evident with without visualize diverticulitis. ? SKELETAL: No osseous hypermetabolic foci are defined. There is no evidence of quantitatively significant enhanced radiopharmaceutical metabolism on meticulous inspection of the appendicular and axial skeletal structures. ? Degenerative changes defined in the thoracic and lumbar spine demonstrate no evidence of increased glucose metabolism. There are no sclerotic, mixed sclerotic-lytic, or primarily lytic changes defined in the axial skeletal structures with evidence of increased FDG uptake. ? PET/PET/CT Tumor Base -Thigh Init IMPRESSION: 1. NEGATIVE EXAMINATION. There is no definitive quantitative scintigraphic evidence of viable neoplasm. 2. Increased FDG concentration defined in the bilateral thoracic perihilum does not fulfill quantitative criteria for malignant transformation. Electronic Signature Kenny Mcgraw D.O. Accurate Quantification of SUVs and standardized PROMISE scores for this report are calculated using the exclusive [employer], ([place] Patent No. [id number] [phone] [place] patent [phone] [id number] [phone] ). Standardization and correction of the FDG SUV metric exclusively available with [employer] intellectual property, allow for vendor non-specific objective quantitative sequential FDG PET-CT comparison and otherwise unobtainable optimization of the sensitivity and specificity of the examination. [email or web address] Electronically Signed: Kenny Mcgraw DO at 22:59 EDT ,
== END | disposition home or self-care (01) ==
PROVIDERS: PCP Physician Assistant
DX: C61 Malignant neoplasm of prostate (principal)
CPT/HCPCS: 78815; A9595

== ENCOUNTER → 2024-02-28 | Outpatient (CLI) | payer MEDICARE, SELFPAY ==
--- NOTE | 2024-02-28 08:51 | EKG12_ITS ---
Test Reason : PRE OP Blood Pressure : */* mmHG Vent. Rate : 62 BPM Atrial Rate : 62 BPM P-R Int : 210 ms QRS Dur : 114 ms QT Int : 398 ms P-R-T Axes : 70 110 75 degrees QTcB Int : 403 ms Sinus rhythm with 1st degree A-V block Indeterminate axis Right bundle branch block Septal infarct , age undetermined Abnormal ECG Confirmed by CORAZON FERRO, RADHA ([id number]), legal editor SRIDHAR PÉREZ ([id number]) on 02/28/2024 12:44:25 PM Referred By: Ilya Hanks Confirmed By: RADHA CHANDRA MD
[2024-02-28 09:45] LABS: Absolute Lymphocyte Count 1.42 X10^3/uL (0.83-4.51); Basophil# 0.05 X10^3/uL; Basophil% 0.9 % (0-1); Eosinophil# 0.11 X10^3/uL; Eosinophils% 2.1 % (0-5); Hematocrit 46.1 % (40-54); Hemoglobin 15.2 g/dL (13.0-16.5); Lymphocyte # 1.42 X10^3/ul (0.83-4.51); Lymphocyte % 26.7 % (19-41); Mean Corpuscular Hgb 30.5 pg (27.0-32.0); Mean Corpuscular Volume 92.4 fL (80-94); Mean Platelet Vol. 10.1 fl (6.2-12.0); Monocyte# 0.72 X10^3/uL; Monocyte% 13.6 % (0-10); NRBC Flagged by Analyzer 0 % (0-5); Neutrophil # 2.98 X10^3/uL (2.7-7.7); Neutrophil % 56.1 % (47-70); Platelet Count 281 K/mm3 (150-450); RBC Distribution Width CV 14.4 % (11.6-14.6); RBC Distribution Width SD 49.4 fl (35.1-43.9); Red Blood Count 4.99 M/mm3 (4.6-6.2); White Blood Count 5.3 K/mm3 (4.4-11.0)
[2024-02-28 10:40] LABS: Albumin, Serum 3.8 g/dL (3.2-5.0); Anion Gap 6 (5-15); BUN 18 mg/dL (7-18); BUN/Creat Ratio 19.1 RATIO (10-20); Calcium,Total 9.3 mg/dL (8.5-10.1); Chloride 108 mmol/L (98-107); Creatinine, Serum 0.94 mg/dL (0.70-1.30); EST Glomerular Filtration Rate 85 mL/min (>60); Est Glom Filt Rate - Afr Amer 103 mL/min (>60); Glucose 113 mg/dL (74-106); PSA,Total - Annual Screen 1.91 ng/mL (0.00-4.00); Potassium 4.8 mmol/L (3.5-5.1); Sodium Level 139 mmol/L (136-145)
[2024-02-28 13:45] LABS: Hemoglobin A1c 6.2 % (3.8-5.6)
== END | disposition home or self-care (01) ==
PROVIDERS: PCP Physician Assistant; Referring Provider Specialist; Visit Provider Specialist
DX: Z01.818 Encounter for other preprocedural examination (principal); C61 Malignant neoplasm of prostate; M24.852 Other specific joint derangements of left hip, not elsewhere classified; M16.7 Other unilateral secondary osteoarthritis of hip; Z12.5 Encounter for screening for malignant neoplasm of prostate; Z79.899 Other long term (current) drug therapy
CPT/HCPCS: 36415; 80048; 82040; 83036; 84153; 85025; 93005; G0103

== ENCOUNTER → 2024-12-14 | Outpatient (CLI) | payer MEDICARE, SELFPAY ==
--- OUTSIDE RECORDS SUMMARY | 2024-12-14 06:52 | XMS RPT_ITS | CCD ---
Author Organization [facility] Care Team Providers Care Security Chief Museum Name Role Phone OMER LUIS Julissa Unavailable Unavailable LUIS TELLO Unavailable Unavailable Prisca Roth APRN, CNP Primary Care Provider Migel Chowdhury MD Unavailable PRISCA JIANG Attending Unavailable PRISCA JIANG Referring Unavailable PRISCA JIANG Primary Care Unavailable PRISCA JIANG Attending Unavailable PRISCA JIANG Referring Unavailable PRISCA JIANG Primary Care Unavailable Apolinar MUSICAL INSTRUMENT MAKERPrisca Primary Care Provider PRISCA GOLD~[phone] Karen pablo Care Unavailable PRISCA GOLD~[phone] Karen pablo Care Unavailable PRISCA GOLD~[phone] Karen pablo Care Unavailable WIDMAN, W Attending Unavailable PRISCA GOLD~[phone] Karen pablo Care Unavailable WIDMAN, W Attending Unavailable FLAQUITO COOL Referring Unavailable PRISCA GOLD~[phone] Karen pablo Care Unavailable WIDMAN, W Attending Unavailable FLAQUITO COOL Referring Unavailable PRISCA GOLD~[phone] Karen pablo Care Unavailable WIDMAN, W Referring Unavailable WIDMAN, W Admitting Unavailable PRISCA GOLD~[phone] Karen pablo Care Unavailable WIDMAN, W Attending Unavailable PRISCA GOLD~[phone] Karen pablo Care Unavailable PRISCA GOLD~[phone] Karen pablo Care Unavailable PRISCA GOLD~[phone] [facility] Unavailable FLAQUITO COOL Referring Unavailable Ilya Hanks Referring Unavailable MANUEL BROOKS [facility] Care Unavailable Ilya Hanks Attending Unavailable Rosmery Farris Attending Unavailable Rosmery Farris Referring Unavailable Thomas Ortiz Primary Care Unavailable LatonyaRachiden Referring Unavailable Ilya Hanks Attending Unavailable Thomas Ortiz Primary Care Unavailable Ilya Hanks Referring Unavailable MANUEL BROOKS [facility] Care Unavailable Ilya Hanks Attending Unavailable Ilya Hanks Referring Unavailable Robby Hooper Attending Unavailable Thomas Ortiz Primary Care Unavailable Ilya Hanks Referring Unavailable Love Hooperl Attending Unavailable Ilya Perry Attending Unavailable Medications Current Medications Medication Drug Class(es) Dates Sig (Normalized) Sig (Original) 24 hr alfuzosin hydrochloride 10 mg extended release oral tablet (10 sources) alpha-Adrenergic Isablel Start: take 1 tablet by mouth every twenty-four hours at bedtime alfuzosin (UROXATRAL) 10 mg 24 hr tablet TAKE 1 TABLET BY MOUTH EVERY 24 HOURS AT BEDTIME FOR 30 DAYS 10/14/2023 Active levothyroxine sodium 0.112 mg oral tablet (10 sources) l-Thyroxine take 1 tablet by mouth once daily in the morning levothyroxine (SYNTHROID, LEVOTHROID) 112 mcg tablet TAKE 1 TABLET BY MOUTH DAILY IN THE MORNING ON AN EMPTY STOMACH Active methylPREDNISolone (2 sources) Corticosteroid Start: End: 4 methylPREDNISolone (Medrol, Herrera,) 4 mg tablet Follow schedule on package instructions 21 tablet 2 11/24/2023 11/30/2023 Active UNKNOWN TO PATIENT (9 sources) Completed/Discontinued Medications Medication Drug Class(es) Dates Sig (Normalized) Sig (Original) Acetaminophen (2 sources) End: 11-09-2023 ACETAMINOPHEN ORAL Take by mouth. 11/09/2023 Discontinued ACETAMINOPHEN OR AL Take by mouth. Active albuterol 0.83 mg/ml inhalation solution (1 source) beta2-Adrenergic Agonist Start: 11-11-2023 End: 11-11-2023 2.5 mg, nebulization, Once as needed, wheezing, Starting on Manuela 11/11/23 at 0908, For 1 dose, Recovery (only) calcium chloride 0.0014 meq/ml / potassium chloride 0.004 meq/ml / sodium chloride 0.103 meq/ml / sodium lactate 0.028 meq/ml injectable solution (1 source) Start: 11-11-2023 End: 11-11-2023 take 100 mL intravenously every hour 100 mL/hr, intravenous, Continuous, Starting on Manuela 11/11/23 at 0645, Preprocedure 1 ml hydrALAZINE hydrochloride 20 mg/ml injection (1 source) Arteriolar Vasodilator Start: 11-11-2023 End: 11-11-2023 5 mg, intravenous, Every 10 min PRN, systolic BP greater than:, 190, Starting on Manuela 11/11/23 at 0908, For 4 doses, Recovery (only), As needed for: -SBP GREATER than 190 mmHg -DBP GREATER than 95 mmHg 0.5 ml HYDROmorphone hydrochloride 1 mg/ml prefilled syringe (1 source) Opioid Agonist Start: 11-11-2023 End: 11-11-2023 0.5 mg, intravenous, Every 10 min PRN, severe pain or when therapies for moderate pain were not effective, Starting on Manuela 11/11/23 at 0908, For 6 doses, Recovery (only) 10 ml lidocaine hydrochloride 10 mg/ml injection (1 source) Antiarrhythmic, Amide Local Anesthetic Start: 11-11-2023 End: 11-11-2023 take 0.2 mL intravenously once as needed 0.2 mL, intradermal, Once as needed, for IV insertion, Starting on Manuela 11/11/23 at 0622, For 1 dose, Preprocedure metFORMIN hydrochloride 500 mg oral tablet (2 sources) Biguanide Start: 09-02-2023 End: 11-09-2023 take 1 tablet by mouth three times daily at mealtime metFORMIN (GLUCOPHAGE) 500 mg tablet Take 1 tablet (500 mg total) by mouth 3 (three) times a day with meals. 09/02/2023 11/09/2023 Discontinued ondansetron ODT (ZOFRAN-ODT) disintegrating tablet 4 mg (1 source) Start: 11-11-2023 End: 11-11-2023 ondansetron ODT (ZOFRAN-ODT) disintegrating tablet 4 mg oxyCODONE hydrochloride 5 mg oral tablet (1 source) Opioid Agonist Start: 11-11-2023 End: 11-11-2023 take 5 mg by mouth every four hours as needed for pain 5 mg, oral, Every 4 hours PRN, moderate pain or when therapies for mild pain were not effective, Starting on Manuela 11/11/23 at 0908, For 2 doses, Recovery (only) Oxygen Therapy, Adult (1 source) Start: 11-11-2023 End: 11-11-2023 inhalation, Continuous, Starting on [facility] 11/11/23 at 0930, Recovery (only), Wean O2 to maintain saturation greater than 92% or at baseline SpO2. May discontinue O2 when saturation is maintained at greater than 92% or at baseline SpO2 on room air., Device: Nasal Cannula, Titrate Oxygen to keep O2 Sat. at or above: 92% Prochlorperazine (1 source) Phenothiazine Start: 11-11-2023 End: 11-11-2023 take 1 tablet by mouth every six hours as needed prochlorperazine (COMPAZINE) tablet 10 mg Problems Active Problems Problem Classification Problem Date Documented Da te Episodic/Chronic Cancer of prostate (19 sources) Malignant tumor of prostate; Translations: [Malignant neoplasm of prostate] Onset: 11-01-2023 11-01-2023 Chronic Other non-traumatic joint disorders (7 sources) Pain in unspecified knee; Translations: [Pain in joint, lower leg] Onset: 09-14-2023 09-14-2023 Episodic Other non-traumatic joint disorders (4 sources) Effusion of joint of left knee; Translations: [Effusion, left knee] Onset: 09-14-2023 09-14-2023 Episodic Other non-traumatic joint disorders (1 source) Effusion, left knee; Translations: [Effusion, left knee] Onset: 09-14-2023 Episodic Other upper respiratory infections (4 sources) Chronic sinusitis; Translations: [Chronic sinusitis, unspecified] Onset: 2023 2023 Chronic Residual codes; unclassified (5 sources) Edema; Translations: [Edema, unspecified] Onset: 09-14-2023 09-14-2023 Episodic Residual codes; unclassified (1 source) Edema, unspecified; Translations: [Edema, unspecified] Onset: 09-14-2023 Episodic Residual codes; unclassified (2 sources) Pain; Translations: [Pain, unspecified] 09-03-2023 Episodic Past or Other Problems Problem Classification Problem Date Documented Da te Episodic/Chronic Mood disorders (10 sources) Mood disorders Onset: 11-01-2023 11-01-2023 Other connective tissue disease (1 source) Unspecified rotator cuff tear or rupture of right shoulder, not specified as traumatic; Translations: [Unspecified rotator cuff tear or rupture of right shoulder, not specified as traumatic] Onset: 03-30-2017 Episodic Results Test Name Value Interpretation Reference Range Facility 12 Lead EKGon 02-28-[address] [facility] [address] [place] [address] 12 Lead EKG 02/28/24 0858 MR#: [id number] Acct: [id number] Name: KATERIN JOSEPH Rep #: [id number] : 1955 68 From: Robby Hooper MD Attending Dr: Dr. Ilya Hanks MD Status: REG I Ordering Dr: Ilya Hanks MD Date: 02/28/24 Location: [facility] Sex: M C Admitted: Test Reason : PRE OP Blood Pressure : */* mmHG Vent. Rate : 62 BPM Atrial Rate : 62 BPM P-R Int : 210 ms QRS Dur : 114 ms QT Int : 398 ms P-R-T Axes : 70 110 75 degrees QTcB Int : 403 ms Sinus rhythm with 1st degree A-V block Indeterminate axis Right bundle branch block Septal infarct , age undetermined Abnormal ECG Confirmed by ROBBY HOOPER MD ([id number]), commercial production editor SRIDHAR PÉREZ ([id number]) on 02/28/2024 12:44:25 PM Referred By: Ilya Hanks Confirmed By: ROBBY HOOPER MD 02/28/24 1244 Date Robby Hooper MD CC: LUISA Ortiz; Dr. Ilya Hanks MD Signed Normal [facility] Albumin, Serumon 02-28-2024 Albumin [Mass/Vol] 3.8 g/dL Normal 3.2-5.0 [facility] Comment on above: Performed By: #### L 501.9985, L500.2500, L501.1800, L501.9910, L100.0100 #### [facility] [address] [place], [address] Basic Metabolic Profile (BMP )on 02-28-2024 BUN/CRE 19.1 RATIO Normal 10-20 [facility] Comment on above: Performed By: #### L 501.9985, L500.2500, L501.1800, L501.9910, L100.0100 #### [facility] [address] [place], [address] CA,Total 9.3 mg/dL Normal 8.5-10.1 [facility] Comment on above: Performed By: #### L 501.9985, L500.2500, L501.1800, L501.9910, L100.0100 #### [facility] [address] [place], [address] Chloride [Moles/Vol] 108 mmol/L High 98-107 [facility] Comment on above: Performed By: #### L 501.9985, L500.2500, L501.1800, L501.9910, L100.0100 #### [facility] [address] [place], [address] CO2 [Moles/Vol] 26.0 mmol/L Normal 21.0-32.0 [facility] Comment on above: Performed By: #### L 501.9985, L500.2500, L501.1800, L501.9910, L100.0100 #### [facility] [address] [place], [address] Creatinine [Mass/Vol] 0.94 mg/dL Normal 0.70-1.30 [facility] Comment on above: Result Comment: The validity of the calculated GFR GFRAA in patients over 70 years has not been determined. Clinical correlation is essential. Performed By: #### L 501.9985, L500.2500, L501.1800, L501.9910, L100.0100 #### [facility] [address] [place], [address] EST GFR - AA 103 mL/min Normal >60 [facility] Comment on above: Result Comment: Afri can Swazi GFR Calc Performed By: #### L 501.9985, L500.2500, L501.1800, L501.9910, L100.0100 #### [facility] [address] [place], [address] GAP 6 Normal 5-15 [facility] Comment on above: Performed By: #### L 501.9985, L500.2500, L501.1800, L501.9910, L100.0100 #### [facility] [address] [place], [address] GFR/1.73 sq M.predicted among non-blacks MDRD (S/P/Bld) [Vol rate/Area] 85 mL/min/{1.73_m2} Normal >60 [facility] Comment on above: Result Comment: Non- GFR Calc Performed By: #### L 501.9985, L500.2500, L501.1800, L501.9910, L100.0100 #### [facility] [address] [place], [address] Glucose [Mass/Vol] 113 mg/dL High 74-106 [facility] Comment on above: Result Comment: Fast ing Glucose result from 100 to 125 mg/dL suggests IMPAIRED HOMEOSTASIS per A.D.A. criteria. Performed By: #### L 501.9985, L500.2500, L501.1800, L501.9910, L100.0100 #### [facility] [address] [place], [address] Potassium [Moles/Vol] 4.8 mmol/L Normal 3.5-5.1 [facility] Comment on above: Performed By: #### L 501.9985, L500.2500, L501.1800, L501.9910, L100.0100 #### [facility] [address] [place], [address] Sodium [Moles/Vol] 139 mmol/L Normal 136-145 [facility] Comment on above: Performed By: #### L 501.9985, L500.2500, L501.1800, L501.9910, L100.0100 #### [facility] [address] [place], [address] Urea nitrogen [Mass/Vol] 18 mg/dL Normal 7-18 [facility] Comment on above: Performed By: #### L 501.9985, L500.2500, L501.1800, L501.9910, L100.0100 #### [facility] [address] [place], [address] CBC W/Diff, Automatedon 11- Absolute Lymph 1.42 X10 3/uL Normal 0.83-4.51 [facility] Comment on above: Performed By: #### L 501.9985, L500.2500, L501.1800, L501.9910, L100.0100 #### [facility] [address] [place], [address] Absolute Neut 3.0 X10 3/uL Normal 2.0-7.7 [facility] Comment on above: Performed By: #### L 501.9985, L500.2500, L501.1800, L501.9910, L100.0100 #### [facility] [address] [place], [address] Basophils/100 WBC (Bld) 0.9 % Normal 0-1 [facility] Comment on above: Performed By: #### L 501.9985, L500.2500, L501.1800, L501.9910, L100.0100 #### [facility] [address] [place], [address] Eosinophils/100 WBC (Bld) 2.1 % Normal 0-5 [facility] Comment on above: Performed By: #### L 501.9985, L500.2500, L501.1800, L501.9910, L100.0100 #### [facility] [address] [place], [address] Erythrocyte distribution width (RBC) [Ratio] 14.4 % Normal 11.6-14.6 [facility] Comment on above: Performed By: #### L 501.9985, L500.2500, L501.1800, L501.9910, L100.0100 #### [facility] [address] [place], [address] Hematocrit (Bld) [Volume fraction] 46.1 % Normal 40-54 [facility] Comment on above: Performed By: #### L 501.9985, L500.2500, L501.1800, L501.9910, L100.0100 #### [facility] [address] [place], [address] Hemoglobin (Bld) [Mass/Vol] 15.2 g/dL Normal 13.0-16.5 [facility] Comment on above: Performed By: #### L 501.9985, L500.2500, L501.1800, L501.9910, L100.0100 #### [facility] [address] [place], [address] IG% 0.600 Normal 0.0-0.9 [facility] Comment on above: Result Comment: IG% - Immature Granulocytes (promyelocytes, myelocytes and metamyelocytes) > 1% indicates that a LEFT SHIFT is Present. Performed By: #### L 501.9985, L500.2500, L501.1800, L501.9910, L100.0100 #### [facility] [address] [place], [address] Lymphocytes/100 WBC (Bld) 26.7 % Normal 19-41 [facility] Comment on above: Performed By: #### L 501.9985, L500.2500, L501.1800, L501.9910, L100.0100 #### [facility] [address] [place], [address] MCH (RBC) [Entitic mass] 30.5 pg Normal 27.0-32.0 [facility] Comment on above: Performed By: #### L 501.9985, L500.2500, L501.1800, L501.9910, L100.0100 #### [facility] [address] [place], [address] MCHC (RBC) [Mass/Vol] 33.0 g/dL Normal 32-36 [facility] Comment on above: Performed By: #### L 501.9985, L500.2500, L501.1800, L501.9910, L100.0100 #### [facility] [address] [place], [address] MCV (RBC) [Entitic vol] 92.4 fL Normal 80-94 [facility] Comment on above: Performed By: #### L 501.9985, L500.2500, L501.1800, L501.9910, L100.0100 #### [facility] [address] [place], [address] Monocytes/100 WBC (Bld) 13.6 % High 0-10 [facility] Comment on above: Performed By: #### L 501.9985, L500.2500, L501.1800, L501.9910, L100.0100 #### [facility] [address] [place], [address] Neutrophils/100 WBC (Bld) 56.1 % Normal 47-70 [facility] Comment on above: Performed By: #### L 501.9985, L500.2500, L501.1800, L501.9910, L100.0100 #### [facility] [address] [place], [address] Nucleated RBC (Bld) [#/Vol] 0 10*3/uL Normal 0-5 [facility] Comment on above: Performed By: #### L 501.9985, L500.2500, L501.1800, L501.9910, L100.0100 #### [facility] [address] [place], [address] Platelet mean volume (Bld) [Entitic vol] 10.1 fL Normal 6.2-12.0 [facility] Comment on above: Performed By: #### L 501.9985, L500.2500, L501.1800, L501.9910, L100.0100 #### [facility] [address] [place], [address] Platelets (Bld) [#/Vol] 281 10*3/uL Normal 150-450 [facility] Comment on above: Performed By: #### L 501.9985, L500.2500, L501.1800, L501.9910, L100.0100 #### [facility] [address] [place], [address] RBC (Bld) [#/Vol] 4.99 10*6/uL Normal 4.6-6.2 [facility] Comment on above: Performed By: #### L 501.9985, L500.2500, L501.1800, L501.9910, L100.0100 #### [facility] [address] [place], [address] RDW SD 49.4 fl High 35.1-43.9 [facility] Comment on above: Performed By: #### L 501.9985, L500.2500, L501.1800, L501.9910, L100.0100 #### [facility] [address] [place], [address] WBC (Bld) [#/Vol] 5.3 10*3/uL Normal 4.4-11.0 [facility] Comment on above: Performed By: #### L 501.9985, L500.2500, L501.1800, L501.9910, L100.0100 #### [facility] [address] [place], [address] Hemoglobin A1con 02-28-2024 HbA1c (Bld) [Mass fraction] 6.2 % High 3.8-5.6 [facility] Comment on above: Result Comment: Norm al < 5.7 % Prediabetic 5.7 - 6.4 % Diabetic >or= 6.5 % Please note range changes. Performed By: #### L 501.9985, L500.2500, L501.1800, L501.9910, L100.0100 #### [facility] [address] [place], [address] PSA,Total - Annual Screenon 02-28-2024 PSA,TOT SCREEN 1.91 ng/mL Normal 0.00-4.00 [facility] Comment on above: Result Comment: This test was performed using the TPSA assay method for the [employer] chemistry system. Values obtained with different assay methods cannot be used interchangably. When changing PSA assays in the course of monitoring a patient, additional sequential testing should be carried out to confirm baseline values. Performed By: #### L 501.9985, L500.2500, L501.1800, L501.9910, L100.0100 #### [facility] [address] [place], [address] PET/CT Tumor Base -Thigh Ini ton 01-04-2024 PET/CT Tumor Base -Thigh Init [facility] [address] [place] [address] PET/CT Tumor Base -Thigh Init MR#: [id number] Acct: [id number] Name: KATERIN JOSEPH Rep #: [id number] : 1955 M 68 From: Luis Stinson PCP: Thomas Ortiz PA-C Status: REG CLI Study: PET/CT Tumor Base -Thigh Init Date of Exam: Exam# [id number] Ordering Dr: Rosmery Farris P-C [id number] EXAMINATION: Ga [address] ? INDICATIONS: 68-year-old male with a history of primary prostate carcinoma, presenting for restaging examination. ? COMPARISON EXAMINATION: None available ? TECHNIQUE: Following the intravenous administration of 9.86 mCi of Ga 68 PSMA via the right hand, multiplanar image acquisitions of the head, neck, chest, abdomen and pelvis to the level of the midthigh, bilateral lower extremities to the level of the forefoot obtained at 73 minutes post tracer distribution reveal: ? The examination was interpreted using the EANM (Elicia et al., Journal of Nuclear Medicine Molecular Imaging 44:1622, 2017) and PROMISE (Eiabdiel et al., Journal of Nuclear Medicine 59:469, 2018) interpretive criteria. ? HEIGHT:?? 69 inches WEIGHT:?? 157 pounds ? PSMA expression score PROMISE criteria: High (3): SUV > parotid-salivary gland, intermediate (2): SUV > liver, low (1): > blood pool, < liver, (0): < blood pool. ? SUV reference values: Parotid glands 18.73. Normal liver parenchyma 9.6. Blood pool 2.6. ? FINDINGS: ? HEAD/NECK:? Symmetric radiopharmaceutical concentration is defined in the bilateral parotid and submandibular glands. Physiologic tracer uptake is noted in the nasal cavity. ? There is no evidence of abnormal increased tracer uptake within the context of the cranial vault. ? CHEST:? Facilitated tracer uptake is noted in the bilateral thoracic perihilum. The calculated standard uptake value is 2.1 for a PROMISE Score of 1. ? CT of the chest demonstrates the following anatomic characteristics: Calcification is defined in the thoracic aorta without evidence of aneurysm. Bilateral axillary and mediastinal soft tissue densities demonstrate no evidence of increased tracer uptake. There are no parenchymal densities-nodules defined in the right and left hemithorax with quantitatively significant increased glucose uptake. ? ABDOMEN/PELVIS:? Uniform, homogeneous radiopharmaceutical concentration is defined in the hepatic and splenic parenchyma, visualization of the bilateral renal units, urinary bladder, and visualized intestinal tract. ? CT of the abdomen and pelvis is remarkable for the following: Atherosclerotic calcification is defined in the abdominal aorta without evidence of dilatation, aneurysm formation. Pelvic arterial calcification is observed. A colostomy is defined in the left anterior pelvic wall. Colonic diverticulosis is evident with without visualize diverticulitis. ? SKELETAL: No osseous hypermetabolic foci are defined. There is no evidence of quantitatively significant enhanced radiopharmaceutical metabolism on meticulous inspection of the appendicular and axial skeletal structures. ? Degenerative changes defined in the thoracic and lumbar spine demonstrate no evidence of increased glucose metabolism. There are no sclerotic, mixed sclerotic-lytic, or primarily lytic changes defined in the axial skeletal structures with evidence of increased FDG uptake. ? PET/PET/CT Tumor Base -Thigh Init IMPRESSION: 1. NEGATIVE EXAMINATION. There is no definitive quantitative scintigraphic evidence of viable neoplasm. 2. Increased FDG concentration defined in the bilateral thoracic perihilum does not fulfill quantitative criteria for malignant transformation. Electronic Signature Luis Mcgraw D.O. Accurate Quantification of SUVs and standardized PROMISE scores for this report are calculated using the exclusive [employer], ([place]. Patent No. [phone] [place] patent [phone] ). Standardization and correction of the FDG SUV metric exclusively available with [employer] intellectual property, allow for vendor non-specific objective quantitative sequential FDG PET-CT comparison and otherwise unobtainable optimization of the sensitivity and specificity of the examination. https://[employer] Electronically Signed: Luis Mcgraw DO at 22:59 EDT , CC: CORINNE Farris; LUISA Ortiz Residency Coordinator: Signed Normal [facility] Surgery Visit Reporton 12-28 Surgery Visit Report [facility] [address] [place] [address] OFFICE VISIT Date of Service: 12/29/23 MR#: [id number] Acct: [id number] Name: KATERIN JOSEPH Rep #: [id number] : 1955 Provider: Dr. Ilya ramirez MD Age/Sex: 68/M Location: [facility] Status: Signed Intake Vital Signs 12/29/23 13:41 Height 5 ft 9 in Weight: 161 lb 2 oz BMI 23.8 BP 123/78 H Blood Pressure Location Rt brachial Position Sitting Respiration 18 Pulse 74 Pulse Source Monitor Temp 97.2 F L Temp Source Temporal Pulse Oximetry (%) 100 Oxygen Delivery Method room air Intake Visit Reasons: INGUINAL HERNIA Chief Complaint: inguinal hernia Is patient in pain?: No Allergies No Known Allergies Allergy (Verified 12/29/23 13:42) Medications ???Medication ???Instructions ???Recorded ???Confirmed ???Type levothyroxine 112 mcg tablet 112 mcg PO DAILY 03/13/18 12/29/23 History metformin 500 mg tablet,extended 500 mg PO DAILY #30 tabs 03/14/18 12/29/23 Rx release 24 hr Have you fallen in the past year?: No PFSH Medical History Abdominal pain Surgical History H/O right inguinal hernia repair Social History Smoking Status: Never smoker alcohol intake: never substance use type: does not use HPI HPI HPI: The patient is a 68-year-old male who is being seen today for right groin pain and a possible recurrence of a right inguinal hernia. He states that he had a previous open right inguinal hernia repair with mesh performed about 10 or 11 years ago. The patient states that a few days after the hernia repair he was chopping wood and noted fairly significant right groin burning pain. He denied any bulge and still denies any obvious bulge to the right groin. He went back and saw his original surgeon shortly thereafter and no recurrent hernia was noted on exam. Now 10 years later patient states that he is still having some persistent pain in the right groin. He states that this is fairly mild and more of a daily nuisance than a significant pain that limits daily activities. He presents today to have this evaluated to determine if he does have any evidence to suggest a hernia recurrence. Again today he denies any lumps or bulges. He also states that he has somewhat of a bulge involving the upper midline abdomen. He states that he is also likely anticipate needing bilateral hip replacement surgeries and he had some concerns about hip replacement surgery if he did have an inguinal hernia. I reassured him that any hip replacement surgery incision would be well away from the region of an inguinal hernia. ROS General General: Yes weight change (loss) and fatigue; No appetite, colon cancer, breast cancer or weakness HEENT HEENT: Yes eye surgery; No difficulty swallowing, eye injury, swollen glands or hoarseness Endo Endocrine: Yes thyroid disease and diabetes mellitus; No thyroid cancer, Hair loss, heat intolerance or cold intolerance Skin Skin: No rash or changing moles Musc Musculoskeletal: No back problems, arthritis, rheumatoid arthritis, gout or joint pain Cardio Cardiovascular: No murmur, pacemaker, heart disease, atrial fibrillation, high blood pressure, heart attack, heart stent, palpitations, shortness of breat with exertion or chest pain Psych Psychiatric: No depression, anxiety or hearing voices Resp Respiratory: No shortness of breath, Yes sleep apnea, No cough, No COPD, No asthma, No emphysema and No wheezing Gastro Gastrointestinal: Yes abdominal pain, Yes nausea or vomiting, No diarrhea, No constipation, No blood in stool, No acid reflux, Yes hemorrhoids, No ulcers, No gallbladder problem and No black,tarry stools Gerardo Hematologic: No blood thinners, No blood disorders, No bleeding, No anemia and No blood clots Neuro Neurologic: No weakness Exam Const General: cooperative, healthy appearing, comfortable and no acute distress Nutritional Appearance: average body habitus Orientation: alert, awake and oriented x3 HENMT Head: normal to inspection Eyes General: appearance normal, both eyes and all related structures GI Other: Examination of the abdomen reveals a soft and nontender abdomen. No evidence of umbilical hernia. Patient does have a rectus diastases measuring about 2 fingerbreadths in width. No significant tenderness with manipulation Other: Examination of the groin reveals no evidence to suggest left inguinal hernia. He does have some mild tenderness on the right but there is no evidence to suggest a recurrent right inguinal hernia Assessment and Plan Assessment and Plan (1) R (more content not included)... Normal [facility] Laboratory - Chemistry and C hemistry - challengeon 12-02-2023 Cryoglobulin Immune diff Ql (S) Prostate [facility] Rad Onc Aria Session Summary on 12-02-2023 Albumin given [Vol] 7.25 Gy Jennifer [facility] Amikacin (Dose) [Mass] 7.25 Gy [facility] Appearance (Unsp spec) Curative [facility] (Unsp spec) [facility] date [Date/time] 12/02/2023 [facility] date [Date/time] 36.25 Gy [facility] date [Date/time] [facility] Cell Fractions/Differential (Bld) [Interp] 5 [facility] Collection start date (U) 11/22/2023 [facility] Cryoglobulin Immune diff Ql (S) C1 [employer] [facility] Date Palm Pollen IgE Qn (S) 11/24/2023 [facility] Tetrahydrocortisone (Dose) [Mass] 3625 cGy [facility] Laboratory - Chemistry and C hemistry - challengeon 11-30-2023 Cryoglobulin Immune diff Ql (S) Prostate [facility] Rad Onc Aria Session Summary on 11-30-2023 Albumin given [Vol] 7.25 Gy [facility] Amikacin (Dose) [Mass] 7.25 Gy [facility] Appearance (Unsp spec) Curative [facility] Appearance (Unsp spec) 6 [facility] date [Date/time] 11/30/2023 [facility] date [Date/time] 29 Gy [facility] date [Date/time] 4 [facility] Cell Fractions/Differential (Bld) [Interp] 5 [facility] Collection start date (U) 11/22/2023 [facility] Cryoglobulin Immune diff Ql (S) C1 [employer] [facility] Date Palm Pollen IgE Qn (S) 11/24/2023 [facility] Tetrahydrocortisone (Dose) [Mass] 3625 cGy [facility] Laboratory - Chemistry and C hemistry - challengeon 11-29-2023 Cryoglobulin Immune diff Ql (S) Prostate [facility] Rad Onc Aria Session Summary on 11-29-2023 Albumin given [Vol] 7.25 Gy [facility] Amikacin (Dose) [Mass] 7.25 Gy [facility] Appearance (Unsp spec) Curative [facility] Appearance (Unsp spec) [facility] date [Date/time] 11/29/2023 [facility] date [Date/time] 21.75 Gy [facility] date [Date/time] 3 [facility] Cell Fractions/Differential (Bld) [Interp] 5 [facility] Collection start date (U) 11/22/2023 [facility] Cryoglobulin Immune diff Ql (S) C1 [facility] Date [place] Pollen IgE Qn (S) 11/24/2023 [facility] Tetrahydrocortisone (Dose) [Mass] 3625 cGy [facility] Laboratory - Chemistry and C hemistry - challengeon 11-26-2023 Cryoglobulin Immune diff Ql (S) Prostate [facility] Onc Aria Session Summary on 11-26-2023 Albumin given [Vol] 7.25 Gy Jennifer ty [facility] Amikacin (Dose) [Mass] 7.25 Gy [facility] Appearance (Unsp spec) Curative [facility] Appearance (Unsp spec) 2 [facility] date [Date/time] 11/26/2023 [facility] date [Date/time] 14.5 Gy [facility] date [Date/time] 2 [facility] Cell Fractions/Differential (Bld) [Interp] 5 [facility] Collection start date (U) 11/22/2023 [facility] Cryoglobulin Immune diff Ql (S) C1 [facility] Palm Pollen IgE Qn (S) 11/24/2023 [facility] Tetrahydrocortisone (Dose) [Mass] 3625 cGy [facility] Laboratory - Chemistry and C hemistry - challengeon 11-24-2023 Cryoglobulin Immune diff Ql (S) Prostate [facility] Rad Onc Aria Session Summary on 11-24-2023 Albumin given [Vol] 7.25 Gy [facility] Amikacin (Dose) [Mass] 7.25 Gy [facility] Appearance (Unsp spec) Curative Tr [facility] Appearance (Unsp spec) 0 Tr [facility] date [Date/time] 11/24/2023 Tr [facility] date [Date/time] 7.25 Gy Tr [facility] date [Date/time] 1 Tr [facility] Cell Fractions/Differential (Bld) [Interp] 5 [facility] Collection start date (U) 11/22/2023 [facility] Cryoglobulin Immune diff Ql (S) C1 [employer] [facility] Date Palm Pollen IgE Qn (S) 11/24/2023 [facility] Tetrahydrocortisone (Dose) [Mass] 3625 cGy [facility] MR PROSTATE WO CONTRASTon MR PROSTATE WO CONTRAST EXAMINATION TYPE: MR PROSTATE WO CONTRAST multi parametric MRI of the prostate gland. 3-D reconstructions were obtained and reviewed on an independent workstation. DATE OF EXAM ORDERED: 11/18/2023 2:35 PM HISTORY: cyberknife treatment planning, prostate cancer COMPARISON: NONE Technique: Multiparametric MRI of the prostate was performed. T1-weighted, T2-weighted, and diffusion-weighted imaging through the prostate gland were performed in different planes using a surface coil on a 3 Flower magnet. FINDINGS: Prostate gland volume:169 grams PERIPHERAL ZONE: The background peripheral zone is mildly heterogeneous with ill-defined areas of linear and wedge-shaped T2 hypointensity, likely representing chronic prostatitis. No focal suspicious lesions are identified. There is hemorrhage in the peripheral zone including at the left posterior apex which limits evaluation.. TRANSITION ZONE / CENTRAL ZONE: The transition zone is severely hypertrophied and replaced by closely opposed T2 hyperintense and T2 hypointense benign prostatic hypertrophy nodules. The anterior fibromuscular stroma is unremarkable. No suspicious lesions are identified. EXTRAPROSTATIC FINDINGS: The seminal vesicles are unremarkable. The neurovascular bundles and recto- prostatic angles are preserved. There are no enlarged or morphologically abnormal lymph nodes. The urinary bladder is unremarkable. No suspicious osseous abnormalities are identified. Colonic diverticulosis. IMPRESSION: No focal prostate lesion. Severe BPH. -------- FINAL REPORT -------- Dictated By: Willie Berumen Dictated Date: 11/18/2023 15:25 Assigned Physician: Willie Berumen Reviewed and Electronically Signed By: Willie Berumen Signed Date: 11/18/2023 15:29 Workstation ID: [id number] Transcribed By: Self Edit Transcribed Date: 11/18/2023 15:25 Normal [facility] MR Prostate WO contraston No focal prostate lesion. Severe BPH. -------- FINAL REPORT -------- Dictated By: Willie Berumen Dictated Date: 11/18/2023 15:25 Assigned Physician: Willie Berumen Reviewed and Electronically Signed By: Willie Berumen Signed Date: 11/18/2023 15:29 Workstation ID: [id number] Transcribed By: Self Edit Transcribed Date: 11/18/2023 15:25 ValeritasCR[facility]E EXAMINATION TYPE: MR PROSTATE WO CONTRAST multi parametric MRI of the prostate gland. 3-D reconstructions were obtained and reviewed on an independent workstation. DATE OF EXAM ORDERED: 11/18/2023 2:35 PM HISTORY: cyberknife treatment planning, prostate cancer COMPARISON: NONE Technique: Multiparametric MRI of the prostate was performed. T1-weighted, T2-weighted, and diffusion-weighted imaging through the prostate gland were performed in different planes using a surface coil on a 3 Flower magnet. FINDINGS: Prostate gland volume:169 grams PERIPHERAL ZONE: The background peripheral zone is mildly heterogeneous with ill-defined areas of linear and wedge-shaped T2 hypointensity, likely representing chronic prostatitis. No focal suspicious lesions are identified. There is hemorrhage in the peripheral zone including at the left posterior apex which limits evaluation.. TRANSITION ZONE / CENTRAL ZONE: The transition zone is severely hypertrophied and replaced by closely opposed T2 hyperintense and T2 hypointense benign prostatic hypertrophy nodules. The anterior fibromuscular stroma is unremarkable. No suspicious lesions are identified. EXTRAPROSTATIC FINDINGS: The seminal vesicles are unremarkable. The neurovascular bundles and recto- prostatic angles are preserved. There are no enlarged or morphologically abnormal lymph nodes. The urinary bladder is unremarkable. No suspicious osseous abnormalities are identified. Colonic diverticulosis. POWERSCRIBE Willie Berumen MD - 11/18/2023 EXAMINATION TYPE: MR PROSTATE WO CONTRAST multi parametric MRI of the prostate gland. 3-D reconstructions were obtained and reviewed on an independent workstation. DATE OF EXAM ORDERED: 11/18/2023 2:35 PM HISTORY: cyberknife treatment planning, prostate cancer COMPARISON: NONE Technique: Multiparametric MRI of the prostate was performed. T1-weighted, T2-weighted, and diffusion-weighted imaging through the prostate gland were performed in different planes using a surface coil on a 3 Flower magnet. FINDINGS: Prostate gland volume:169 grams PERIPHERAL ZONE: The background peripheral zone is mildly heterogeneous with ill-defined areas of linear and wedge-shaped T2 hypointensity, likely representing chronic prostatitis. No focal suspicious lesions are identified. There is hemorrhage in the peripheral zone including at the left posterior apex which limits evaluation.. TRANSITION ZONE / CENTRAL ZONE: The transition zone is severely hypertrophied and replaced by closely opposed T2 hyperintense and T2 hypointense benign prostatic hypertrophy nodules. The anterior fibromuscular stroma is unremarkable. No suspicious lesions are identified. EXTRAPROSTATIC FINDINGS: The seminal vesicles are unremarkable. The neurovascular bundles and recto- prostatic angles are preserved. There are no enlarged or morphologically abnormal lymph nodes. The urinary bladder is unremarkable. No suspicious osseous abnormalities are identified. Colonic diverticulosis. IMPRESSION: No focal prostate lesion. Severe BPH. -------- FINAL REPORT -------- Dictated By: Willie Berumen Dictated Date: 11/18/2023 15:25 Assigned Physician: Willie Berumen Reviewed and Electronically Signed By: Willie Berumen Signed Date: 11/18/2023 15:29 Workstation ID: [id number] Transcribed By: Self Edit Transcribed Date: 11/18/2023 15:25 [facility] Radiology Study observation (narrative) [facility] MR Prostate WO contrastOrder ed By: Willie Berumen on 11-18-2023 [facility] Work Phone: 12 Lead EKGon 10-01-[address] [facility] Cardi[facility] [address] [place] [address] 12 Lead EKG 10/01/23 0829 MR#: [id number] Acct: [id number] Name: KATERIN JOSEPH Rep #: [id number] : [id number] 68 From: Robby Hooper MD Attending Dr: Dr. Ilya Hanks MD Status: REG CLI Ordering Dr: Ilya Hanks MD Date: 10/01/23 Location: N Sex: M C Admitted: Test Reason : PRE OP Blood Pressure : / mmHG Vent. Rate : 079 BPM Atrial Rate : 079 BPM P-R Int : 132 ms QRS Dur : 122 ms QT Int : 374 ms P-R-T Axes : 054 248 081 degrees QTc Int : 428 ms Normal sinus rhythm Right bundle branch block Abnormal ECG Confirmed by ROBBY HOPOER MD ([id number]), commercial production editor SRIDHAR PÉREZ ([id number]) on 10/04/2023 9:42:16 AM Referred By: Ilya Hanks Confirmed By:ROBBY HOOPER MD 10/04/23 0942 Date Robby Hooper MD CC: PRISCA JIANG; Dr. Ilya Hanks MD Signed Normal [facility] 36on 09-20-2023 36 Returned pts vm, he said he wanted sylvie in [place] gave him next available which was 11/21/2023. He said his called a different [facility] office and will called our office back if he didn't want sylvie with the other office. Normal [facility] MR Chest WO contraston 09-13 1. Moderate nonspeci fic intensity osseous edema posterior aspect of the femoral head which could represent osseous contusion, early avascular necrosis or mild stress changes. No well-defined fracture line or unstable fracture. 2. Moderate to advanced femoral acetabular cartilage thinning with mild osteoarthropathy. Extensive tears of the acetabular labrum with degenerative tearing more posteriorly. Small hip joint effusion. 3. Findings suggesting a mild femoral acetabular impingement. 4. Mild gluteus medius minimus tendinitis. 5. Mild bilateral hamstrings tendinitis with tiny partial tears bilaterally. 6. Nonspecific prostate enlargement measuring 6.5 cm with some nonspecific nodularity. Recommend correlation with examination. Consider PSA. Report Dictated on Electronically Signed By: Suhail Zuluaga MD Electronically Signed Date/Time: 09/14/2023 8:38 AM EDT [facility] Patient Name: KATERIN JOSEPH : 1955 Exam Date/Time: 09/14/2023 08:00 Procedure: MR HIP LEFT WO IV CONTRAST Ordering Provider: JIANG CAROLYN Reason For Exam: r52, r60.9 Examination: MRI left hip Clinical Indication: r52, r60.9, hip pain after overuse Comparison: None Findings: Multiplanar multisequence high field strength MRI images were obtained through the pelvis and left hip without intravenous or intra-articular contrast. Prostate appears enlarged measuring 6.5 cm with very slight central nodularity, nonspecific. Mild to moderate sigmoid diverticulosis. There is osseous edema seen along the posterior femoral head most consistent with osseous contusion, early avascular necrosis or very subtle stress changes. No well-defined or unstable fracture line. There is moderate to high-grade articular cartilage thinning. There is tear of the acetabular labrum superior aspect of the anterior and extending into the anterior superior labrum along the articular surface and measuring approximately 2.5 cm. There is degenerative tear of the posterior superior and posterior labrum which has an articular sided and interstitial component. There is a small bursal sided perforation series 10 image six. Alpha angle measures 63 degrees with a small cam seen along the femoral head neck junction. Normal lateral center edge angle. Acetabulum is mildly retroverted. Ligamentum teres is normal. Small hip joint effusion. Iliopsoas demonstrates trace bursitis. Adductor compartment musculature is within normal limits. Mild gluteus medius medius tendinitis, no sizable tear. No trochanteric bursitis. Ischiofemoral interval measures 1.2 cm. There is no muscular edema posteriorly to confirm posterior hip impingement. Common hamstrings tendons demonstrate tendinitis and tiny partial tears along the deep fibers bilaterally. [facility] Suhail Zuluaga MD - 09/14/2023 Patient Name: KATERIN JOSEPH : 1955 Exam Date/Time: 09/14/2023 08:00 Procedure: MR HIP LEFT WO IV CONTRAST Ordering Provider: JIANG CAROLYN Reason For Exam: r52, r60.9 Examination: MRI left hip Clinical Indication: r52, r60.9, hip pain after overuse Comparison: None Findings: Multiplanar multisequence high field strength MRI images were obtained through the pelvis and left hip without intravenous or intra-articular contrast. Prostate appears enlarged measuring 6.5 cm with very slight central nodularity, nonspecific. Mild to moderate sigmoid diverticulosis. There is osseous edema seen along the posterior femoral head most consistent with osseous contusion, early avascular necrosis or very subtle stress changes. No well-defined or unstable fracture line. There is moderate to high-grade articular cartilage thinning. There is tear of the acetabular labrum superior aspect of the anterior and extending into the anterior superior labrum along the articular surface and measuring approximately 2.5 cm. There is degenerative tear of the posterior superior and posterior labrum which has an articular sided and interstitial component. There is a small bursal sided perforation series 10 image six. Alpha angle measures 63 degrees with a small cam seen along the femoral head neck junction. Normal lateral center edge angle. Acetabulum is mildly retroverted. Ligamentum teres is normal. Small hip joint effusion. Iliopsoas demonstrates trace bursitis. Adductor compartment musculature is within normal limits. Mild gluteus medius medius tendinitis, no sizable tear. No trochanteric bursitis. Ischiofemoral interval measures 1.2 cm. There is no muscular edema posteriorly to confirm posterior hip impingement. Common hamstrings tendons demonstrate tendinitis and tiny partial tears along the deep fibers bilaterally. IMPRESSION: 1. Moderate nonspecific intensity osseous edema posterior aspect of the femoral head which could represent osseous contusion, early avascular necrosis or mild stress changes. No well-defined fracture line or unstable fracture. 2. Moderate to advanced femoral acetabular cartilage thinning with mild osteoarthropathy. Extensive tears of the acetabular labrum with degenerative tearing more posteriorly. Small hip joint effusion. 3. Findings suggesting a mild femoral acetabular impingement. 4. Mild gluteus medius minimus tendinitis. 5. Mild bilateral hamstrings tendinitis with tiny partial tears bilaterally. 6. Nonspecific prostate enlargement measuring 6.5 cm with some nonspecific nodularity. Recommend correlation with examination. Consider PSA. Report Dictated on Electronically Signed By: Suhail Zuluaga MD Electronically Signed Date/Time: 09/14/2023 8:38 AM EDT [facility] Radiology Study observation (narrative) [facility] MR Chest WO contrastOrdered By: Suhail Zuluaga on 09-14-2023 [facility] Work Phone: MR Knee - left WO and W cont rast Samuel 09-14-2023 1. Mild intramenisca l myxoid degenerative changes of the medial meniscus posterior horn. 2. Few partial thickness chondral fissures within the mid central femoral trochlea. 3. Trace joint effusion. Report Dictated on Electronically Signed By: Jethro Petersen MD Electronically Signed Date/Time: 09/14/2023 8:36 AM EDT [facility] Patient Name: KATERIN JOSEPH : 1955 Exam Date/Time: 09/14/2023 08:27 Procedure: MR KNEE LEFT WO CONTRAST Ordering Provider: JIANG CAROLYN Reason For Exam: m25.569, m25.462 Exam Type: MR KNEE LEFT WO CONTRAST Exam Date and Time: 09/14/2023 8:27 AM EDT Demographics: Gender: Male; Age: 68 years Indication: Pain; Comparison: None available TECHNIQUE: MRI of the left knee was performed using a standard non-contrast protocol in three planes (axial, sagittal, and coronal). FINDINGS: JOINT SPACE: Trace joint effusion. No Jacinto's cyst. No intra-articular bodies. MEDIAL COMPARTMENT: Mild intrameniscal myxoid degenerative changes of the posterior horn. No meniscal tear. No full-thickness, focal cartilage defects. LATERAL COMPARTMENT: The lateral meniscus has normal morphology and signal intensity. No full-thickness, focal cartilage defects. PATELLOFEMORAL COMPARTMENT: Few partial thickness chondral fissures within the mid central femoral trochlea. Otherwise no full-thickness, focal cartilage defects. No lateral patellar tilt or translation. Normal patellar and trochlear morphology. No patella maureen. No edema in superolateral Hoffa's fat pad. EXTENSOR MECHANISM: The quadriceps tendon is intact. The patella tendon is intact. CRUCIATE LIGAMENTS: The anterior cruciate ligament is intact. The posterior cruciate ligament is intact. COLLATERAL LIGAMENTS AND POSTEROLATERAL CORNER: The medial collateral ligament (MCL) is intact. The lateral collateral ligament (LCL) is intact. The posterolateral corner structures are intact. OSSEOUS STRUCTURES: The alignment of the osseous structures is anatomic. No acute fracture or bone marrow edema. No suspicious osseous lesions or other bone marrow signal alteration. SOFT TISSUES: No subcutaneous edema or soft tissue mass. [facility] Jethro Petersen MD - 09/14/2023 Patient Name: KATERIN JOSEPH : 1955 Exam Date/Time: 09/14/2023 08:27 Procedure: MR KNEE LEFT WO CONTRAST Ordering Provider: JIANG CAROLYN Reason For Exam: m25.569, m25.462 Exam Type: MR KNEE LEFT WO CONTRAST Exam Date and Time: 09/14/2023 8:27 AM EDT Demographics: Gender: Male; Age: 68 years Indication: Pain; Comparison: None available TECHNIQUE: MRI of the left knee was performed using a standard non-contrast protocol in three planes (axial, sagittal, and coronal). FINDINGS: JOINT SPACE: Trace joint effusion. No Jacinto's cyst. No intra-articular bodies. MEDIAL COMPARTMENT: Mild intrameniscal myxoid degenerative changes of the posterior horn. No meniscal tear. No full-thickness, focal cartilage defects. LATERAL COMPARTMENT: The lateral meniscus has normal morphology and signal intensity. No full-thickness, focal cartilage defects. PATELLOFEMORAL COMPARTMENT: Few partial thickness chondral fissures within the mid central femoral trochlea. Otherwise no full-thickness, focal cartilage defects. No lateral patellar tilt or translation. Normal patellar and trochlear morphology. No patella maureen. No edema in superolateral Hoffa's fat pad. EXTENSOR MECHANISM: The quadriceps tendon is intact. The patella tendon is intact. CRUCIATE LIGAMENTS: The anterior cruciate ligament is intact. The posterior cruciate ligament is intact. COLLATERAL LIGAMENTS AND POSTEROLATERAL CORNER: The medial collateral ligament (MCL) is intact. The lateral collateral ligament (LCL) is intact. The posterolateral corner structures are intact. OSSEOUS STRUCTURES: The alignment of the osseous structures is anatomic. No acute fracture or bone marrow edema. No suspicious osseous lesions or other bone marrow signal alteration. SOFT TISSUES: No subcutaneous edema or soft tissue mass. IMPRESSION: 1. Mild intrameniscal myxoid degenerative changes of the medial meniscus posterior horn. 2. Few partial thickness chondral fissures within the mid central femoral trochlea. 3. Trace joint effusion. Report Dictated on Electronically Signed By: Jethro Petersen MD Electronically Signed Date/Time: 09/14/2023 8:36 AM EDT [facility] [employer] Radiology Study observation (narrative) [employer] MR Knee - left WO and W cont rast IVOrdered By: Jethro Petersen on 09-14-2023 [employer] Work Phone: CT MAXILLOFACIAL WO IV CONTR Ashkan 2023 CT MAXILLOFACIAL WO IV CONTRAST Patient Name: KATERIN JOSEPH : 1955 Exam Date/Time: 2023 07:59 Procedure: CT MAXILLOFACIAL WO IV CONTRAST Ordering Provider: JIANG CAROLYN Reason For Exam: J32.9 EXAMINATION: CT maxillofacial without intravenous contrast. EXAM DATE AND TIME: 2023 7:59 AM EST INDICATION: J32.9 ADDITIONAL INFORMATION: 68-year-old male with history of chronic sinusitis presents for evaluation COMPARISON: None LIMITATIONS: None TECHNIQUE: Thin axial imaging of the facial bones was performed from the level just above the orbital roof down through the level of the mid cervical spine. Images were reformatted in coronal and sagittal projections using the raw CT data and were interpreted in conjunction with the axial images to render the findings listed below. Dose reduction was employed with automated exposure control. FINDINGS: Facial bones: No acute fracture or traumatic dislocation identified. Paranasal sinuses: Mild mucosal thickening is seen involving the maxillary sinuses. Mastoids: The mastoid air cells appear slightly hypoplastic. Skull base: Unremarkable. Orbits: No orbital emphysema. Surrounding soft tissues: Normal. Other findings: There is leftward nasal septal deviation. IMPRESSION: 1. No acute facial fracture or traumatic dislocation identified. 2. Mild maxillary sinusitis. 3. Leftward nasal septal deviation. Report Dictated on Electronically Signed By: Dylan Caldwell MD Electronically Signed Date/Time: 2023 2:04 PM EST Pt states he hit his head on the ice 13 years ago and ever since then he has had nasal congestion and post nasal drainage. He also states he has some left ear pain and fullness. Normal [facility] CT Maxillofacial region WO a nd W contrast Samuel 2023 1. No acute facial fracture or traumatic dislocation identified. 2. Mild maxillary sinusitis. 3. Leftward nasal septal deviation. Report Dictated on Electronically Signed By: Dylan Caldwell MD Electronically Signed Date/Time: 2023 2:04 PM EST [facility] Patient Name: KATERIN JOSEPH : 1955 Exam Date/Time: 2023 07:59 Procedure: CT MAXILLOFACIAL WO IV CONTRAST Ordering Provider: JIANG CAROLYN Reason For Exam: J32.9 EXAMINATION: CT maxillofacial without intravenous contrast. EXAM DATE & TIME: 2023 7:59 AM EST INDICATION: J32.9 ADDITIONAL INFORMATION: 68-year-old male with history of chronic sinusitis presents for evaluation COMPARISON: None LIMITATIONS: None TECHNIQUE: Thin axial imaging of the facial bones was performed from the level just above the orbital roof down through the level of the mid cervical spine. Images were reformatted in coronal and sagittal projections using the raw CT data and were interpreted in conjunction with the axial images to render the findings listed below. Dose reduction was employed with automated exposure control. FINDINGS: Facial bones: No acute fracture or traumatic dislocation identified. Paranasal sinuses: Mild mucosal thickening is seen involving the maxillary sinuses. Mastoids: The mastoid air cells appear slightly hypoplastic. Skull base: Unremarkable. Orbits: No orbital emphysema. Surrounding soft tissues: Normal. Other findings: There is leftward nasal septal deviation. [facility] Dylan Caldwell MD - 2023 Patient Name: KATERIN JOSEPH : 1955 Exam Date/Time: 2023 07:59 Procedure: CT MAXILLOFACIAL WO IV CONTRAST Ordering Provider: JIANG CAROLYN Reason For Exam: J32.9 EXAMINATION: CT maxillofacial without intravenous contrast. EXAM DATE & TIME: 2023 7:59 AM EST INDICATION: J32.9 ADDITIONAL INFORMATION: 68-year-old male with history of chronic sinusitis presents for evaluation COMPARISON: None LIMITATIONS: None TECHNIQUE: Thin axial imaging of the facial bones was performed from the level just above the orbital roof down through the level of the mid cervical spine. Images were reformatted in coronal and sagittal projections using the raw CT data and were interpreted in conjunction with the axial images to render the findings listed below. Dose reduction was employed with automated exposure control. FINDINGS: Facial bones: No acute fracture or traumatic dislocation identified. Paranasal sinuses: Mild mucosal thickening is seen involving the maxillary sinuses. Mastoids: The mastoid air cells appear slightly hypoplastic. Skull base: Unremarkable. Orbits: No orbital emphysema. Surrounding soft tissues: Normal. Other findings: There is leftward nasal septal deviation. IMPRESSION: 1. No acute facial fracture or traumatic dislocation identified. 2. Mild maxillary sinusitis. 3. Leftward nasal septal deviation. Report Dictated on Electronically Signed By: Dylan Caldwell MD Electronically Signed Date/Time: 2023 2:04 PM EST [facility] Radiology Study observation (narrative) [facility] CT Maxillofacial region WO a nd W contrast IVOrdered By: Dylan Caldwell on 2023 [facility] [employer] Work Phone: ANES Jose 03-30-2017 ANES POST HNO ID: [id number]: Alexis PugaService: AnesthesiologyAuthor Type: AnesthesiologistType: Anesthesia PostOpFiled: 03/30/2017 11:57 AMNote Text:POST ANESTHESIA EVALUATION NOTESERVICE DATE: 03/30/2017SERVICE TIME: 11:57 AMDOB: 1955Vitals: 03/30/1711Temp: 36.7 ?C (98.1 ?F) 36.2 ?C (97.2 ?F) 03/30/1711BP: 158/84 158/87 158/92 147/87 03/30/1711Pulse: 77 76 72 70 03/30/1711Resp: 18 18 18 18 03/30/1711SpO2: 99% 97% 98% 96%Validated Vital Signs: YesPOST ANES STATUS: No apparent anesthetic complications. The patient isappropriately hydrated with stable respiratory and cardiovascular status.Patient has safe and adequate airway control. The patient has appropriatepain relief and no significant post operative nausea or vomiting. Thepatient has achieved baseline mental status.Further assessment by Anesthesia Service: NoneOther Remarks:SIGNATURE: Alexis Puga MD PATIENT NAME: Katerin JosephDATE: March 30, 2017 : 11:57 AM PAGER/CONTACT #: [phone] [facility] ANES PREOPon 03-30-2017 ANES PREOP HNO ID: [id number]: Jose LaraService: AnesthesiologyAuthor Type: AnesthesiologistType: Anesthesia PreOpFiled: 03/30/2017 9:14 AMNote Text: ANESTHESIOLOGY DAY OF SURGERY NOTESERVICE DATE: 03/30/2017SERVICE TIME: 8:23 AMDOB: 1955Procedure(s) (LRB):ARTHROSCOPY SHOULDER (Right)RECONSTRUCTION SHOULDER (Right)CLAVICULECTOMY PARTIAL (Right)Surgeon(s):Dewayne TelloEstimated body mass index is 24.13 kg/(m2) as calculated from thefollowing: Height as of this encounter: 175 cm (5' 8.9). Weight as of this encounter: 73.9 kg (162 lb 14.7 oz).Most recent hematocrit and potassium results:No results found for this basename: HCT,HEMATOCRIT,K,POTASSI UMANES DOS/PREOP NOTE:Vitals: 1BP: 143/81Pulse: 74Resp: 16Temp: 36.7 ?C (98.1 ?F)TempSrc: Temporal ArterySpO2: 100%Weight: 73.9 kg (162 lb 14.7 oz)Height: 175 cm (5' 8.9)There is no problem list on file for this patient.No past medical history on file.No past surgical history on file.No family history on file.Social History:Social HistorySubstance Use Topics- Smoking status: Not on file- Smokeless tobacco: Not on file- Alcohol use Not on fileNo current facility-administered medications on file prior to encounter.Current Outpatient Prescriptions on File Prior to Encounter:levothyroxine (SYNTHROID) 112 mcg tablet Take 112 mcg by mouth dailybefore breakfast.No current facility-administered medications for this encounter.Allergies: ALLERGIESNo Known AllergiesDOS EXAM: Adequate NPO Status: YesAnesthetic Risks, Benefits, Alternatives, Personnel and Consent Discussed:YesPatient agrees to proceed: YesPrevious Anesthesia: No history of adverse eventAirway Assessment: MP 2; Neck ROM: Full ROM without neurologic symptoms;Airway Evaluation: No significant abnormalitiesSymptoms of Sleep Apnea: NoneDentition: Teeth intactAdditional Physical Exam:Lungs: Patient health status unchanged since recent history and physical.See history and physical for exam findings.Cardiac: Patient health status unchanged since recent history andphysical. See history and physical for exam findings.Additional Pertinent Findings: N/ABlood Products: Not anticipated for this procedureAnesthetic Plan: GeneralAnesthetic Monitoring: Standard ASA MonitorsPain Management Plan: Parenteral or OralASA Class: 3Other Medical Problems: no nerve block per Dr. Barry Beta Isabell medication administered within 24 hours: N/AI have interviewed and examined the patient. I have reviewed the medicalrecord and/or the pre-anesthesia evaluation, pertinent labs, and testresults.Significant changes in the patient's condition since the History andPhysical, not otherwise documented in primary service progress notes: NoThis contains updated information obtained within 48 hours ofSurgery/Procedure.SIGN ATURE: Jose Lara MD PATIENT NAME: Katerin JosephDATE: March 30, 2017 : 8:23 AM CSN: [id number] [facility] BRIEF OP NOTon 03-30-2017 BRIEF OP NOT HNO ID: [id number]: Luis Bustos: Orthopaedic SurgeryAuthor Type: PhysicianType: Brief Op NoteFiled: 03/30/2017 10:35 AMNote Text:BRIEF OPERATIVE / PROCEDURE NOTELOG ID: [id number]/Procedure Date: 03/30/2017Incision/Proce dure Start Time: 9:56 AMIncision Close/Procedure End Time:Surgeon(s)/Procedur alist(s) and Rubber Press Tender(s):Surgeon(s) and Role: * Luis Tello - PrimaryProcedure(s):Silvia more shoulder rotator cuff repairAnesthesia: GeneralFindings: Rotator cuff tear right shoulderEstimated Blood Loss: 0 mlSpecimens: NoneComplications: NonePre-Op/Pre-Procedure Diagnosis: samePost-Op/Post-Procedu re Diagnosis: Tear of right rotator cuff, unspecifiedtear extent [M75.101]SIGNATURE: Luis Tello MD PATIENT NAME: Katerin JosephDATE: March 30, 2017 : 10:34 AM PAGER/CONTACT #: [facility] NURSING PROGon 03-30-2017 NURSING PROG HNO ID: [id number]: Amanda Kim Rn: NursingAuthor Type: Registered NurseType: Nursing Progress NoteFiled: 03/30/2017 11:57 AMNote Text: Nursing Progress NotePatient Name: Katerin JosephMRN: [id number] Location: [place] Surgery/[place] Surgery ___ 1055 Pt received in PACU on cart from OR. CR monitor applied and stripobtained. Pt c/o pain to shoulder. Ice applied.This note was completed by: Victorina Fraga RN1110 Pt medicated with Morphine IV for pain to right shoulder.1150 Fentanyl IV completed. Pt states his pain is lessening. [facility] NURSING PROG HNO ID: [id number]: Johnnie Law Rnice: NursingAuthor Type: Registered NurseType: Nursing Progress NoteFiled: 03/30/2017 8:27 AMNote Text:0745 pt to ASCU. AANDOx3. QUINN TCx4. C/o L shoulder pain. PIV started. VSS nos/sx of [id number] pt ready for OR. Family @ BS. Normal [facility] OPERATIVE NOon 03-30-2017 OPERATIVE NO HNO ID: [id number]: Luis TelloService: Orthopaedic SurgeryAuthor Type: PhysicianType: Operative ReportFiled: 04/06/2017 11:04 AMNote Text:[facility]- Operative ReportKATERIN JOSEPH EDOB: 1955 AGE: 61 SEX: MMRN: [id number] ACCTNUM: [id number] SVC: OROR LOCATION: [id number] PHYSICIAN: Luis Tello M.D.DATE OF PROCEDURE: 03/30/2017SURGEON: Luis Tello M.D.RACE STEWARD: NONEANESTHESIA: General anesthesia.PREOPERATIVE DIAGNOSIS(ES): Rotator cuff tear, right shoulder.POSTOPERATIVE DIAGNOSIS(ES): Same.NAME OF OPERATION: Rotator cuff repair, right shoulder.INDICATIONS:PRO CEDURE: Under satisfactory general anesthesia, the right shoulder wasprepped with ChloraPrep and draped in the usual manner. He was on thesurgery table in a semi-sitting position. Prior to surgery, he received2 g of Ancef. The shoulder was examined and there was full passive rangeof motion. The incision site was injected with 0.5% Marcaine withepinephrine. The incision was about an inch and a half in length overthe superior acromion. It was taken down to the acromion. The deltoid onapproach was used. The deltoid aponeurosis was peeled off the anterioracromion and off the distal 5 mm of the clavicle. 5 mm of the distalclavicle was removed and the cut surface was covered with bone wax. Theanterior acromionectomy was done in the manner of Rocío with avertical cut and then a beveled cut. The cut surface was smoothed with arasp and covered with bone wax. The rotator cuff was now examined. Therewas a small tear right at the insertion of the supraspinatus tendon. Itwas about a centimeter in length, possibly less. Prior to this, I hadmade the decision to go ahead with the biceps tendon tenotomy. This wasbased on persistent discomfort in this region. In fact, most of thetime, he localized almost all of his pain in this region, and persistenttenderness on 3 out of 4 exams and over the biceps tendon. A very smallincision was made. I was able to palpate the biceps groove. I made asmall incision there and immediately saw the biceps tendon which didindeed show gross wear. It was cut and completely released. There wasonly minimal retraction. I repaired this incision with 2 sutures of #1Polysorb suture and then went and repaired the rotator cuff tear, I justroughened up the bone on the tubercle and made 3 drill holes and at theend using #1 Polysorb suture, we anatomically repaired the rotator cuff.It was a watertight repair. I covered it over with bursa tissue so thatit is completely sealed off. The shoulder was taken through a full rangeof motion. There was absolutely no impingement against the undersurfaceof the acromion and the repair held up well. The wound was nowthoroughly irrigated with saline. The aponeurosis was repairedanatomically using #1 Polysorb suture. Subcutaneous tissue closed with 0Polysorb and skin closed with Monocryl 4-0 subcuticular, reinforced withSureClose. A sterile dressing was applied. He tolerated the procedurewell and returned to the recovery room in satisfactory condition.Luis Tello M.D.Orthopedic SurgeryRFR:[id number]: 03/30/2017 10:51:16T: 03/30/2017 12:07:47Job #: [id number] [facility] NURSING PROGon 03-29-2017 NURSING PROG HNO ID: [id number]: Gina (Rn) KEMI Garvinervice: (none)Author Type: Registered NurseType: Nursing Progress NoteFiled: 03/29/2017 11:41 AMNote Text:DOS- needs H AND 03/29/17 11:40 AM called patient AND PREOPERATIVE INSTRUCTIONS Reviewed.Scheduled for Procedure(s):ARTHROSCOPY SHOULDERRECONSTRUCTION SHOULDERCLAVICULECTOMY PARTIAL with Surgeon(s):Luis Tello on 12/12/17 has scheduled [facility] procedure [facility]: [phone] -- [address] [facility] [id number].Blood Thinning Medications:- Stop NSAIDS (Ibuprofen, Advil, Aleve, Motrin, Celebrex, Mobic, etc.) 7days before surgery, as directed by your surgeon.- Stop Vitamin E, ALL multi-vitamins, herbals and dietary supplements 7days before surgery.- You may take Tylenol (Acetaminophen) or any of your pain medicationsthat do not contain aspirin or NSAIDS as needed.Dietary Restrictions:- No solid food after midnight.- You may have 12 ounces of clear liquids (water, clear juices such asapple juice or gatorade, carbonated beverages, clear tea, black coffee,jello) until 2 hours before scheduled arrival at facility.Pain Medications:Medications: Approved medications to take the morning of surgery with a sip of water:SynthroidIf you start any new medications after today's visit, please contact [facility] above.Important Reminders:-Wear loose fitting clothing to accommodate bulky dressing or braces thatyou may be wearing post op- Sweat pants, loose fitting tops that zip orbutton in the front will be easiest to put on after your surgery.- Candy, mints, gum and tobacco products are NOT permitted the morning ofsurgery.- Hearing aids, dentures and glasses may be worn the morning of surgery.- NO jewelry, body piercings, makeup, lotion, no deodorant, nail azerbaijani,hairpins or contacts are to be worn the day of surgery.If you develop symptoms such as a fever, cold, or flu, or have otherchanges to your health within TWO DAYS of scheduled surgery or the morningof surgery, please contact the surgery center above.Personal Belongings:- Leave ALL valuables and money at home or with family members.For Outpatient Procedures: - YOU MUST HAVE A RESPONSIBLE CUSTOMS COMPLIANCE SPECIALIST TAKE YOU HOME. A CLOTH HAULER OR CABDRIVER CANNOT BE MADE A RESPONSIBLE CUSTOMS COMPLIANCE SPECIALIST. Family or friend for pick-up.- We recommend that a responsible person stays with you overnight to takecare of you.- You cannot stay in a hotel alone after outpatient surgery. You will notbe permitted to have your surgery, if you do not have someone to take careof you. Arrival Time for Surgery:- The Surgery Center or hospital where you are having surgery will callthe afternoon before surgery (or Wednesday for Wednesday surgery) with ascheduled arrival time.- If you have not heard by 4 pm, please contact the surgery center above.Please be aware that emergency situations arise, which may delay or changeyour surgical time. If this happens, we will notify you as soon aspossible and regret any inconvenience.Gina Garvin RN Normal [facility] HISTORY PHYSICALon HISTORY PHYSICAL HNO ID: [id number]: Luis TelloService: Orthopaedic SurgeryAuthor Type: PhysicianType: HANDPFiled: 03/25/2017 3:15 PMNote Text:[facility]- Surgical History and Physical KATERIN JOSEPH EDOB: 1955 AGE: 61 SEX: MMRN: [id number] ACCTNUM: [id number] SVC: OROR LOCATION:ATTENDING PHYSICIAN: LUIS TELLO M.D.ADMIT DATE: 03/22/2017CHIEF COMPLAINT: Admitting diagnosis is rotator cuff tear, right shoulderwith AC joint arthrosis.HISTORY OF PRESENT ILLNESS: The patient is a 61-year-old male. He hashad problems with his right shoulder for quite a while. It has beenespecially bad in this past year. He localizes the pain to the bicepstendon. His exam also suggests a rotator cuff tear. He had a recentMRI, which showed a rotator cuff tear, AC joint arthrosis. The bicepstendon looks good on the MRI but clinically it bothers him a lot. He isadmitted now for surgery which will consist of a rotator cuff repair,anterior acromionectomy, distal clavicle excision, very possibly bicepstenotomy.PAST SURGICAL HISTORY: He has had a meniscectomy. He has had an inguinalhernia repair. He had a fractured left ankle repair.PAST MEDICAL HISTORY: Illnesses: None.MEDICATIONS: thyroid medication and vitamin D.ALLERGIES: None.SOCIAL HISTORY: Does not smoke.FAMILY HISTORY: Unremarkable.REVIEW OF SYSTEMS: Unremarkable.PHYSICAL EXAM: General: Well-developed, well-nourished male, alert, inno acute distress. HEENT: Normal. Neck: Supple. No nodes palpable.Lungs: Clear. Heart: Normal sinus rhythm. No murmur or gallop.Abdomen: Benign. Extremities: The right shoulder, he has difficultygetting the arm fully overhead. He has a negative drop sign, positiveimpingement sign, positive Morris sign. Good strength with resistedabduction and resisted external rotation. He has tenderness in thebiceps tendon proximally.IMPRESSION:1. Rotator cuff tear, right shoulder.2. Biceps tendon tendinosis.3. Acromioclavicular joint arthrosis.PLAN:1. Arthroscopy.2. Biceps tendon tenotomy.3. Rotator cuff repair and anterior acromionectomy and distal clavicleexcision, right shoulder. He will have a regional nerve block and a generalanesthetic.Dewayne Tello M.D.Orthopedic SurgeryRFR:[id number]: 03/24/2017 11:26:01T: 03/24/2017 21:41:22Job #: [id number] [facility] HOSPon 03-22-2017 Weight Patient:My Joseph EMRN: Height:5' 8.898(1.75 m)Weight:162 lb 14.7 oz (73.9 kg)Outpatient Medications as of 03/30/17:levothyroxine (SYNTHROID) 112 mcg tabletAdmission/Clinic Administered Medications as of 03/30/17:0.9% NaCl 2-10 mLProblem List:No problem list on file for this patient.Allergies:No Known AllergiesDate Verified:03/30/17Lab ValuesNo results within the last 30 days for the following basenames: K,HCTNo progress notes entered within the past 30 days [facility] HISTORY PHYSICALon 7 HISTORY PHYSICAL HNO ID: [id number]: Luis TelloService: Orthopaedic SurgeryAuthor Type: PhysicianType: HANDPFiled: 03/28/2017 9:15 AMNote Text:[facility]- Surgical History and Physical KATERIN JOSEPH EDOB: 1955 AGE: 61 SEX: MMRN: [id number] ACCTNUM: [id number] SVC: OROR LOCATION:ATTENDING PHYSICIAN: LUIS TELLO M.D.ADMIT DATE: 03/30/2017CHIEF COMPLAINT: Admitting diagnosis is rotator cuff tear, rightshoulder, with AC joint arthrosis and possibly a biceps tendinitis.HISTORY OF PRESENT ILLNESS: The patient is a 61-year-old male. He hashad problems with his right shoulder for approximately 13 years. Thishas gotten worse and worse. It got to the point where it has beenintolerable lately. He had a recent MRI which shows a full-thicknessrotator cuff tear and shows big spurs at the AC joint and the acromion.He is admitted now for surgery which will consist of a rotator cuffrepair, anterior acromionectomy, and distal clavicle excision. He hashad symptoms that suggest pain coming from the biceps tendon but the MRIlooks good and clinically, he is not tender over the biceps tendon.PAST SURGICAL HISTORY: He has had an arthroscopy of his left knee, aninguinal hernia repair, and left ankle fracture.PAST MEDICAL HISTORY: Illnesses: None.MEDICATIONS: Thyroid and vitamin D.ALLERGIES: None.SOCIAL HISTORY: Does not smoke.FAMILY HISTORY: Unremarkable.REVIEW OF SYSTEMS: Unremarkable.PHYSICAL EXAM: General: Well-developed, well-nourished male, alert, inmoderate pain. HEENT: Normal. Neck: Supple. No nodes palpable.Lungs: Clear. Heart: Normal sinus rhythm. No murmur or gallop.Abdomen: Benign. Extremities: The right shoulder, he has difficultygetting the arm up over head. He has a very positive drop sign.Positive impingement sign. Positive Morris sign. No tenderness overthe biceps tendon.IMPRESSION: Rotator cuff tear of right shoulder with AC joint arthrosisand spurs at the anterior acromion.PLAN: Procedure: Arthroscopy, anterior acromionectomy, distal clavicleexcision, and rotator cuff repair of right shoulder.Luis Tello M.D.Orthopedic SurgeryRFR:[id number]: 03/17/2017 13:45:00T: 03/17/2017 23:05:43Job #: [id number] Normal [facility] Vital Signs Date Time Vital Sign Value Performing Clinician Praneeth arreaga 11-11-2023 09:40-0400 Body temperature 97 [degF] Robbie Gimenez MD Work Phone: [facility] 11-11-2023 09:40-0400 Diastolic blood pressure 80 mm[Hg] Robbie Gimenez MD Work Phone: [email or web address] 11-11-2023 09:40-0400 Heart rate 64 /min Robbie Gimenez MD Work Phone: [id number] 11-11-2023 09:40-0400 Respiratory rate 14 /min Robbie Gimenez MD Work Phone: [id number] 11-11-2023 09:40-0400 SaO2% (BldA) [Mass fraction] 99 % Robbie Gimenez MD Work Phone: [id number] 11-11-2023 09:40-0400 Systolic blood pressure 135 mm[Hg] Robbie Gimenez MD Work Phone: [id number] 11-11-2023 06:35-0400 Body height 176.5 cm Robbie Gimenez MD Work Phone: [email or web address] 11-11-2023 06:35-0400 Body mass index (BMI) [Ratio] 23.71 kg/m2 Robbie Gimenez MD Work Phone: [email or web address] 11-11-2023 06:35-0400 Body weight 73.9 kg Robbie Gimenez MD Work Phone: [email or web address] 11-01-2023 14:22-0400 Body height 177.8 cm Robbie Gimenez MD Work Phone: [email or web address] 11-01-2023 14:22-0400 Body mass index (BMI) [Ratio] 23.53 kg/m2 Robbie Gimenez MD Work Phone: [email or web address] 11-01-2023 14:22-0400 Body temperature 97.39 [degF] Robbie Gimenez MD Work Phone: [email or web address] 11-01-2023 14:22-0400 Body weight 74.39 kg Robbie Gimenez MD Work Phone: [email or web address] 11-01-2023 14:22-0400 Diastolic blood pressure 83 mm[Hg] Robbie Gimenez MD Work Phone: [facility] [employer] 11-01-2023 14:22-0400 Heart rate 74 /min Robbie Gimenez MD Work Phone: [facility] [employer] 11-01-2023 14:22-0400 Respiratory rate 16 /min Robbie Gimenez MD Work Phone: [facility] [employer] 11-01-2023 14:22-0400 SaO2% (BldA) [Mass fraction] 96 % Robbie Gimenez MD Work Phone: [facility] [employer] 11-01-2023 14:22-0400 Systolic blood pressure 145 mm[Hg] Robbie Gimenez MD Work Phone: [employer] [employer] Encounters Encounter Date Encounter Type Care Provider Facility Start: 03-28-2024 Encounter for other preprocedural examination Ilya Latonya [facility] Start: 02-28-2024 End: 02-28-2024 ambulatory Ilya Hanks [facility] Start: 02-28-2024 End: 02-28-2024 ambulatory Ilya Hanks Facility:[facility] Start: 01-03-2024 End: 01-04-2024 ambulatory PRISCA Solares~[id number] [facility] Start: 01-03-2024 End: 01-03-2024 Evaluation and management of inpatient Robbie Gimenez MD Work Phone: [facility] Start: 01-03-2024 End: 01-03-2024 Subsequent hospital visit by physician Robbie Gimenez MD Work Phone: [facility] Comment on above: Cancer of prostate ( CMS/HCC) (Primary Dx) Start: 12-29-2023 End: 12-29-2023 ambulatory Ilya Bradford [place] Facility:[facility] Start: 12-02-2023 ambulatory PRISCA Solares~[id number] [facility] Start: 12-02-2023 End: 12-02-2023 Evaluation and management of inpatient [facility] Start: 12-02-2023 End: 12-02-2023 Subsequent hospital visit by physician [facility] Comment on above: Prostate cancer (CMS /HCC) (Primary Dx) Start: 11-30-2023 ambulatory PRISCA Solares~[id number] [facility] Start: 11-30-2023 End: 11-30-2023 Evaluation and management of inpatient [facility] Start: 11-30-2023 End: 11-30-2023 Subsequent hospital visit by physician McSam Treatment [facility] Start: 11-29-2023 ambulatory PRISCA Solares~[id number] [facility] Start: 11-29-2023 End: 11-29-2023 Evaluation and management of inpatient [facility] C[facility] Radiation Treatment [facility] Start: 11-29-2023 End: 11-29-2023 Subsequent hospital visit by physician McSam Treatment [facility] Start: 11-26-2023 ambulatory PRISCA Solares~[id number] [facility] Start: 11-26-2023 End: 11-26-2023 Evaluation and management of inpatient [facility] Radiation Treatment [facility] Start: 11-26-2023 End: 11-26-2023 Subsequent hospital visit by physician [facility] Start: 11-24-2023 ambulatory PRISCA Solares~[id number] [facility] Start: 11-24-2023 End: 11-24-2023 Evaluation and management of inpatient [facility] Radiation Treatment [facility] Start: 11-24-2023 End: 11-24-2023 Subsequent hospital visit by physician Huber Treatment [facility] Comment on above: Cancer of prostate ( CMS/HCC) (Primary Dx) Start: 11-18-2023 ambulatory PRISCA Solares~[id number] [facility] Start: 11-18-2023 End: 11-18-2023 Evaluation and management of inpatient McSa Mr 3t [facility] Start: 11-18-2023 End: 11-18-2023 Subsequent hospital visit by physician Landona 3t [facility] Comment on above: Prostate cancer (CMS /HCC) Start: 11-18-2023 ambulatory PRISCA Solares~[id number] [facility] Start: 11-18-2023 End: 11-18-2023 Evaluation and management of inpatient Robbie Gimenez MD Work Phone: [facility] Start: 11-18-2023 End: 11-18-2023 Subsequent hospital visit by physician Robbie Gimenez MD Work Phone: [facility] Start: 11-11-2023 End: 11-11-2023 ambulatory Andreina GIMENEZ [facility] Start: 11-11-2023 End: 11-11-2023 Evaluation and management of inpatient Robbie Gimenez MD Work Phone: [facility] Start: 11-11-2023 End: 11-11-2023 Subsequent hospital visit by physician Robbie Gimenez MD Work Phone: [facility] Start: 11-01-2023 ambulatory PRISCA Solares~[id number] [facility] Start: 11-01-2023 End: 11-01-2023 Evaluation and management of inpatient Robbie Gimenez MD Work Phone: [facility] Start: 11-01-2023 End: 11-01-2023 Subsequent hospital visit by physician Robbie Gimenez MD Work Phone: [facility] Comment on above: Prostate cancer (CMS /HCC) (Primary Dx) Start: 10-18-2023 ambulatory Ilya Latonya Facility: [facility] Start: 10-11-2023 Encounter for preprocedural cardiovascular examination Ilya Hanks [facility] Start: 10-01-2023 Encounter for other preprocedural examination Ilya Hanks [facility] Start: 10-01-2023 End: 10-01-2023 ambulatory Ilya Hanks Facility:[facility] Start: 10-01-2023 End: 10-01-2023 ambulatory Ilya Hanks Facility:[facility] Start: 09-20-2023 Telephone encounter Migle Dye ra, MD Work Phone: [facility] Start: 09-14-2023 End: 09-14-2023 Subsequent hospital visit by physician Prisca Durham CNP Work Phone: [facility] Comment on above: Pain in unspecified knee; Effusion, left knee Pain in unspecified knee; Edema, unspecified Start: 09-14-2023 End: 09-14-2023 ambulatory [facility] Start: 09-03-2023 End: 12-03-2023 Transcribe Orders Prisca Jiang APRN - [employer] Work Phone: [facility] Comment on above: Pain, unspecified (P rimary Dx); Edema, unspecified Pain in unspecified knee (Primary Dx); Effusion, left knee; Pain, unspecified; Edema, unspecified Start: 2023 End: 2023 ambulatory [facility] Start: 2023 End: 2023 Subsequent hospital visit by physician Prisca Jiang APRN - [employer] Work Phone: [facility] Imaging Comment on above: Chronic sinusitis, u nspecified Start: 04-22-2023 Transcribe Orders Prisca Tuck er SALES HOST - [employer] Work Phone: [id number] Comment on above: Chronic sinusitis, u nspecified (Primary Dx) Start: 04-21-2023 Transcribe Orders Prisca foster SALES HOST - [employer] Work Phone: [id number] Start: 01-21-2023 Transcribe Orders Prisca foster SALES HOST - [employer] Work Phone: [facility] Start: 03-30-2017 End: 03-30-2017 Ambulatory [facility] Procedures Date Procedure Procedure Detail Performing Clinician Start: 12-02-2023 RAD ONC ARIA SESSION SUMMARY Physician Radiation Oncology MD Work Phone: Start: 11-30-2023 RAD ONC ARIA SESSION SUMMARY Physician Radiation Oncology MD Work Phone: Start: 11-29-2023 RAD ONC ARIA SESSION SUMMARY Physician Radiation Oncology MD Work Phone: Start: 11-26-2023 RAD ONC ARIA SESSION SUMMARY Physician Radiation Oncology MD Work Phone: Start: 11-24-2023 RAD ONC ARIA SESSION SUMMARY Physician Radiation Oncology MD Work Phone: Start: 11-18-2023 Mri pelvis w/o contr ast material Robbie Gimenez MD Work Phone: Start: 11-01-2023 Adult depression scr eening assessment Robbie Gimenez MD Work Phone: Start: 09-14-2023 End: 09-14-2023 Mri any jt lower extrem w/o contrast matrl Prisca Jiang APRN - [employer] Work Phone: Start: 2023 Ct maxillofacial w/o contrast material Prisca Jiang APRN - [employer] Work Phone: Plan of Treatment Date Care Activity Detail Author Start: 11-10-2024 Falls Risk Assessment Falls Risk Ass essment [facility] Start: 10-31-2024 Adolescent depressio n screening assessment Depression Screening [facility] Start: 01-03-2024 End: 01-03-2024 Patient encounter procedure 01/03/2024 8:30 AM EDT Appointment [facility] [address] [facility] [address] [place] [address] Robbie Gimenez MD [address] [facility] [address] [place], [place] [phone] [facility] Start: 12-19-2023 Influenza vaccination [facility] Start: 12-02-2023 End: 10-31-2024 Rad Onc Treatment Planning Simulation Rad Onc Treatment Planning Simulation Radiation Oncology Routine Prostate cancer ([facility]/HCC) Expected: 12/02/2023 (Approximate), Expires: 10/31/2024 [facility] Phone: Comment on above: Expected: 12/02/2023 (Approximate), Expires: 10/31/2024 Start: 12-02-2023 End: 12-02-2023 Patient encounter procedure 12/02/2023 8:00 AM EDT Appointment [facility] [address] [place] [phone] [facility] Start: 11-30-2023 End: 11-30-2023 Patient encounter procedure 11/30/2023 8:00 AM EDT Appointment [facility] [address] [place] [phone] [facility] Start: 11-29-2023 End: 11-29-2023 Patient encounter procedure 11/29/2023 8:45 AM EDT Appointment [facility] [address] [place] [phone] [facility] Start: 11-26-2023 End: 11-26-2023 Patient encounter procedure 11/26/2023 8:00 AM EDT Appointment [facility] [address] [place] [address] Shaista Ramirez [facility] Start: 11-24-2023 End: 11-24-2023 Patient encounter procedure 11/24/2023 8:00 AM EDT Appointment Shaista Rochabus [facility] [address] [facility] [address] [place] [address] Shaista Ramirez [facility] Start: 11-18-2023 End: 11-18-2023 Patient encounter procedure Shaista Ramirez [facility] Start: 11-11-2023 End: 11-11-2023 Admission to same day surgery center 11/11/2023 8:15 AM EDT - 11/11/2023 9:30 AM EDT Surgery [facility] [address] [place] [phone] Robbie Gimenez MD [address] [place] [phone] TRANSPERINEAL PLACEMENT OF FIDUCIAL MARKERS AND TRANSPERINEAL PLACEMENT OF GEL [facility] Comment on above: TRANSPERINEAL PLACEM ENT OF FIDUCIAL MARKERS AND TRANSPERINEAL PLACEMENT OF GEL Start: 11-11-2023 Subsequent hospital visit by physician 11/11/2023 8:15 AM EDT Hospital Encounter [facility] [address] [place] [phone] Robbie Gimenez MD [address] [place] [phone] [facility] Nazario Start: 11-11-2023 End: 11-11-2023 IMPLANT BRACHYTHERAPY PROSTATE [email or web address] Start: 10-20-2023 Falls Risk Assessment Falls Risk Ass essment [email or web address] Start: 10-20-2023 Hepatitis C screening Hepatitis C Sc reening [email or web address] Start: 10-20-2023 Lipid panel Cholesterol Sc reening (Lipid Panel) [email or web address] Start: 10-20-2023 Medicare Annual Well ness Visit Medicare Annual Wellness Visit [facility] Start: 10-20-2023 Screening for malign ant neoplasm of colon Colorectal Cancer Screening: Colonoscopy [facility] Start: 10-20-2023 Social Influencers o f Health Screening Social Influencers of Health Screening [facility] Start: 09-03-2023 End: 09-02-2024 CT Hip - right WO contrast CT hip right wo IV contrast Imaging Routine Pain, unspecified Edema, unspecified Expected: 09/03/2023, Expires: 09/02/2024 [facility] Work Phone: Comment on above: Expected: 09/03/2023 , Expires: 09/02/2024 Start: 2023 End: 2023 Patient encounter procedure 2023 7:30 AM EST Appointment [facility] CT Imaging [address] [place] [address] Prisca Jiang, SALES HOST - [employer] [address] [place] [address] [facility] CT Imaging Start: 12-18-2022 COVID-19 Vaccine ( season) COVID-19 Vaccine ( season) [facility] Start: 12-18-2022 Influenza vaccination Influenza Vacc ine (#1) [facility] Start: 2021 Pneumococcal Vaccine : 65+ Years (1 of 1 - PCV) Pneumococcal Vaccine: 65+ Years (1 of 1 - PCV) [facility] Start: 2016 RSV Immunization age d 60 or older (1 - 1-dose 60+ series) RSV Immunization aged 60 or older (1 - 1-dose 60+ series) [facility] Start: 2016 RSV Immunization Patients 60+ Years Old (1 - 1-dose 60+ series) RSV Immunization Patients 60+ Years Old (1 - 1-dose 60+ series) [facility] Start: 2006 Zoster Vaccines (1 of 2) Zoste r Vaccines (1 of 2) [facility] Start: 1975 DTaP,Tdap,and Td Vaccines (1 - Tdap) DTaP,Tdap,and Td Vaccines (1 - Tdap) [facility] Start: 1975 DTaP/Tdap/Td Vaccine s (1 - Tdap) DTaP/Tdap/Td Vaccines (1 - Tdap) [facility] Start: 1975 Zoster Vaccines (1 of 2) Zoste r Vaccines (1 of 2) [facility] Start: 1974 Hepatitis C screening Hepatitis C Sc reening [facility] Start: 1968 Depression Screening Depression Scre ening [facility] Start: 1962 Pneumococcal Vaccine : 65+ Years (1 of 2 - PCV) Pneumococcal Vaccine: 65+ Years (1 of 2 - PCV) [facility] Start: 1961 COVID-19 Vaccine (#1) COVID-19 Vacci ne (#1) [facility] Start: 1956 COVID-19 Vaccine (#1) COVID-19 Vacci ne (#1) [facility] Start: 1956 Lipid panel Lipid Panel [facility] Start: 1956 Medicare Annual Well ness (AWV) Medicare Annual Wellness (AWV) [facility] Start: 1956 Screening for malign ant neoplasm of colon [facility] Payers Date Payer Category Payer Self-pay 2021 Medicare [id number] 2021 Medicare [id number] 1955 Unknown [id number] 1955 Unknown [id number] [id number] 1955 Unknown [id number] [id number] 1955 Unknown [id number] [id number] 1956 Unknown [id number] [id number] 1956 Unknown [id number] 2.16. [id number] 1956 Unknown [id number] 2.16. [id number] 1956 Unknown [id number] 2.16. [id number] 1956 Unknown [id number] 2.16. [id number] 1956 Unknown [id number] 2.16. [id number] Unknown [id number] 2.16.8 [id number] Unknown [id number] 2.16.8 [id number] Unknown [id number] 2.16.8 [id number] Unknown [id number] 2.16.8 [id number] Unknown [id number] 2.16.8 [id number] Unknown [id number] 2.16.8 [id number] Unknown [id number] 2.16.8 [id number] Social History Date Type Detail Facility Tobacco smoking stat [facility] Tobacco smoking consumption unknown [facility] Start: 1955 Sex Assigned At Not on file [facility] Gender identity Not on file [facility] Start: 11-01-2023 Tobacco smoking stat [facility] Never smoked tobacco [facility] Start: 11-01-2023 Tobacco use and exposure Smokeless t obacco non-user [facility] Start: 11-01-2023 End: 01-03-2024 Alcoholic beverage intake Lifetime non-drinker (finding) [facility] Start: 1955 Sex assigned at Male T [facility] Start: 11-11-2023 Gender identity Identifies as male gender (finding) [facility] Medical Equipment Procedure Code Equipment Code Equipment Origin al Text Equipment Identifier Dates [id number] Start: 11-11-2023 Comment on above: Description: 4 Impla nted Marker Imaging 4 pk 1.2x3.0mm Gold Fiducial 20cm - Sn/A - [id number] Start: 11-11-2023 Comment on above: Description: 4 impla nted Barrigel 3ml [id number] Start: 11-11-2023 Comment on above: Description: X3 PER BOX Description: 3 impla nted Clinical Notes 09-20-2023 to 01-03-2024 Andreina Gimenez MD - 01/03/2024 8:30 AM Deborah Woodard MD - 12/02/2023 8:00 AM Sanjay Tarango RN - 12/02/2023 8:00 AM Sanjay Tarango RN - 12/02/2023 8:00 AM EDT Note Date & Type Note Facility 01-03-2024 History of Presen t illness Narrative Images from the original note were not included. RADIATION ONCOLOGY FOLLOW-UP NOTE Patient Name (MRN): Katerin Joseph ([id number]) Radiation Oncologist: Andreina Gimenez MD : 1955 Date of Service: 01/03/2024 Referring Physician: Flaquiot Cool MD DIAGNOSIS AND STAGE Cancer Staging Prostate cancer ([facility]) Staging form: Prostate, AJCC 8th Edition - Clinical stage from 09/30/2023: Stage IIB (cT1c, cN0, cM0, PSA: 6.6, Grade Group: 2) - Signed by Robbie Gimenez MD on 11/01/2023 PRIOR RADIATION TREATMENT Radiation Therapy: Prostate Treatment Period Fraction Dose Fractions Total Dose Course C1 [facility]ife 11/24/2023-12/02/2023 (days elapsed: 8) Plans Planned Prostate 11/24/2023-12/02/2023 725 cGy / 5 3,625 cGy Reference Points Delivered Prostate 11/24/2023-12/02/2023 -- -- 3,625 cGy ASSESSMENT & PLAN 68-year-old male with favorable intermediate risk prostate cancer for routine 1 month telehealth follow-up visit. Has a number of concerns at this point including abdominal soreness and generalized weakness. He will eventually undergo bilateral hip replacement for avascular necrosis. I will plan to check in with him again in approximately 1 month via a telehealth visit. Incidentally he did tell me that he is scheduled to undergo a PET scan in [place] tomorrow. I am not sure who ordered that or why that is being done. I strongly encouraged him to make sure he has arrangements for follow-up with Dr. Cool for PSA surveillance. ONCOLOGIC HISTORY He completed 36.25 Faria in 5 fractions using the CyberKnife treatment platform on 12/02/2023. INTERIM HISTORY Again he describes generalized weakness and abdominal soreness. He does admit that his urination has improved some over the course of the last month. REVIEW OF SYSTEMS Review of Systems All other systems reviewed and are negative. PHYSICAL EXAMINATION There were no vitals taken for this visit. No data recorded Physical Exam No physical exam was performed as this was an audio only telehealth visit. DATA ANALYSIS I have personally reviewed the following imaging in the PACS system and additional reports as below. IMAGING: none although he tells me he is undergoing a PET/CT in [place] tomorrow PATHOLOGY: No new pathology documented in this encounter [facility] 12-02-2023 History of Presen t illness Narrative Images from the original note were not included. RADIATION ONCOLOGY COMPLETION NOTE Patient Name (MRN): Katerin Joseph ([id number]) Radiation Oncologist: Robbie Gimenez MD : 1955 Date of Service: 12/02/2023 Referring Physician: Flaquito Cool MD DIAGNOSIS AND STAGE Cancer Staging Prostate cancer ([facility]) Staging form: Prostate, AJCC 8th Edition - Clinical stage from 09/30/2023: Stage IIB (cT1c, cN0, cM0, PSA: 6.6, Grade Group: 2) - Signed by Robbie Gimenez MD on 11/01/2023 RADIATION TREATMENT DETAILS Treatment site: Prostate and proximal seminal vesicles Treatment Intent: primary Radiation Therapy: Prostate Treatment Period Fraction Dose Fractions Total Dose Course C1 [facility]ife 11/24/2023-12/02/2023 (days elapsed: 8) Plans Planned Prostate 11/24/2023-12/02/2023 725 cGy 3,625 cGy Reference Points Delivered Prostate 11/24/2023-12/02/2023 -- -- 3,625 cGy Treatment Status: Completed as planned Technique: CyberKnife stereotactic body radiotherapy HISTORY Katerin Joseph is a 68 y.o. male with favorable intermediate risk prostate cancer stage T1c with PSA 6.6 and Woodway score 3+4. He met with Dr. Gimenez on 11/01/23 and wished to pursue CyberKnife stereotactic body radiotherapy. CLINICAL COURSE The patient received a dose of 36.25 Gy delivered in 5 fractions to the prostate and proximal seminal vesicles. He received his individual fractions of 7.25 Gy prescribed to the 85.3% isodose line on 11/24/23, 11/26/23, 11/29/23, 11/30/23, and 12/01/23 respectively. A total of 41 beams were used for each fraction. The planning target volume was 239 cc. The patient overall tolerated treatment well with some expected urinary symptoms. FOLLOW-UP Patient will plan continued follow-up and PSA checks with Dr. Cool. He will have a one month telehealth visit with Dr. Gimenez in one month. You have completed your Cyberknife radiation treatments and may resume normal activity slowly. You may return to your regular exercise as tolerated. You may return to your regular diet and take your medications as prescribed. Your follow up appointment is listed below. If you have questions or concerns prior to your next visit, please contact your Radiation Oncology Team. Encounter addended by: Debbie Tarango RN on: 12/02/2023 9:59 AM Actions taken: Flowsheet accepted RADIATION ONCOLOGY ON TREATMENT VISIT Patient Name (MRN): Katerin Joseph ([id number]) Staff Physician: Manolo Woodard MD : 1955 Date of Service: 12/02/2023 RADIATION TREATMENT DETAILS Radiation Therapy: Prostate Treatment Period Fraction Dose Fractions Total Dose Course C1 Cyberknife 11/24/2023-12/02/2023 (days elapsed: 8) Plans Planned Prostate 11/24/2023-12/02/2023 725 cGy 5 / 5 3,625 cGy Reference Points Delivered Prostate 11/24/2023-12/02/2023 -- -- 3,625 cGy SUBJECTIVE / OBJECTIVE Completes today. Overall tolerated well. Using flomax and medrol dose pack. There were no vitals taken for this visit. ASSESSMENT / PLAN Follow-up with Dr. Gimenez in one month. Toxicity Assessment None Pain Score and Plan of Care None Medication Changes No orders of the defined types were placed in this encounter. OTV Summary Radiation Therapy Visit Symptoms within expected range Radiation dose schedule reviewed and remains acceptable Dosimetry plan remains acceptable Radiation technique remains acceptable Films reviewed and remain acceptable Patient setup reviewed and remains acceptable Pain assessed Pain management planned Continue radiation therapy documented in this encounter [facility] 11-24-2023 History of Presen t illness Narrative Encounter addended by: Debbie Tarango RN on: 11/24/2023 9:55 AM Actions taken: Clinical Note Signed Patient asks to talk with nurse about medications. Patient asks if he is to have a steroid prescribed. Patient made aware that a prescription had been sent to his pharmacy for a Medrol dose pack. Instructed patient to eat food when taking medication as it can upset the stomach. Patient says that he did have an episode of abdominal pain and nausea on Wednesday and mild pain in the right lower abdomin similar to pain after hernia surgery. He did see his PCP for above symptoms. Patient says family members did have same symptoms. Patient says he has had difficulty administering saline enema. Did give patient handout on use of saline enema and did show patient an enema bottle and explained how to use. Patient aware that if he is to have an increase in severity of pain in right lower quadrant and feels ill he can seek care at an ED. Patient verbalizes understanding all of above. documented in this encounter [facility] 11-11-2023 Nurse Note Discharge instructions given to patient . [facility] 11-11-2023 Procedure note Discharge instructions given to patient . TRANSPERINEAL PLACEMENT OF FIDUCIAL MARKERS AND TRANSPERINEAL PLACEMENT OF GEL OPERATIVE NOTE Date: 11/11/2023 [facility] Name: Katerin Joseph, : 1955, Diagnosis Pre-op Diagnosis * Malignant neoplasm of prostate (CMS/HCC) [C61] Post-op Diagnosis * Malignant neoplasm of prostate (CMS/HCC) [C61] Procedures * TRANSPERINEAL PLACEMENT OF FIDUCIAL MARKERS AND TRANSPERINEAL PLACEMENT OF GEL 06246 - [place] TRANSPERINEAL PLACEMENT OF BIODEGRADABLE MATERIAL SHAHEEN-PROSTATIC INJ 90120 - NH PLCMNT INTERSTITIAL DEV RADIATION THERAPY GUIDANCE PROSTATE Additional Procedures 65498 - [place] TRANSPERINEAL PLACEMENT OF BIODEGRADABLE MATERIAL SHAHEEN-PROSTATIC INJ 40794 - [place] PLCMNT INTERSTITIAL DEV RADIATION THERAPY GUIDANCE PROSTATE Indications: Katerin Joseph is an 68 y.o. male who is having surgery for placement of fiducial markers and rectal spacer in preparation for an upcoming course of CyberKnife SBRT. Surgeon(s) & Rubber Press Tender(s) * Robbie Gimenez MD - Primary Anesthesia: Monitor Anesthesia Care ASA: II Estimated Blood Loss: Minimal Drains: * No LDAs found * Specimen: none Procedure Details: The patient was placed in the dorsolithotomy position using yellowfin stirrups. Lidocaine jelly was placed in the rectum. The ultrasound probe was placed in the rectum and attached to the stepper stabilizer. A bilateral pudendal nerve block was performed using standard technique with 1% lidocaine solution. A total of 8 fiducial markers were placed in the prostate gland given its extremely large size. The needle was attached to the first syringe and inserted through the rectourethralis muscle. The needle tip was advanced into the perirectal fat just posterior to the prostate gland. The needle position was confirmed both sagittal and axial villarreal. All 3 syringes were used to create optimal spacing between the prostate and rectum. Generous sagittal and axial ultrasound imaging was utilized throughout the procedure. No suspected penetration or compromise of the rectal wall occurred. The patient was taken to the recovery room in stable condition. The patient and his were warned about the possibility of blood in his urine, stool and or ejaculate. They were cautioned about signs and symptoms of infection. The patient was advised to go to his local emergency room if he is unable to urinate after hours. He will receive a phone call from our office within the next several days to confirm his next appointment here for treatment planning. Findings: He has an extremely enlarged prostate gland going completely off the creatinine on the ultrasound monitor. For this reason 8 fiducial markers were utilized (2 packages). Complications: None; patient tolerated the procedure well. Disposition: PACU - hemodynamically stable. Condition: stable Nothing to eat or drink past midnight Shower. No powders, creams, lotions or perfume/cologne on skin. Antibacterial wash x2 COVID/Vaccination status/please bring card on DOS Arrival time:0615 Medications as instructed with sips of water on the morning of surgery:As noted Carb Loading (If Applicable)NA Assistive Devices:NA Bowel Prep (If Applicable)Enema as directed Please ensure you have a class c truck driver, age 18 or greater, and someone with your for 24 hours after anesthesia. No big decisions day after surgery due to anesthesia Maintenance Plumber: Spouse/Eyuum-[phone] Accept Emergency blood transfusion:Yes documented in this encounter [facility] 11-11-2023 Surgery Surgical operation note TRANSPERINEAL PLACEMENT OF FIDUCIAL MARKERS AND TRANSPERINEAL PLACEMENT OF GEL OPERATIVE NOTE Date: 11/11/2023 [facility] Name: Katerin Joseph, : 1955, Diagnosis Pre-op Diagnosis * Malignant neoplasm of prostate (CMS/HCC) [C61] Post-op Diagnosis * Malignant neoplasm of prostate (CMS/HCC) [C61] Procedures * TRANSPERINEAL PLACEMENT OF FIDUCIAL MARKERS AND TRANSPERINEAL PLACEMENT OF GEL 62277 - [place] TRANSPERINEAL PLACEMENT OF BIODEGRADABLE MATERIAL SHAHEEN-PROSTATIC INJ 82941 - [place] PLCMNT INTERSTITIAL DEV RADIATION THERAPY GUIDANCE PROSTATE Additional Procedures 05799 - [place] TRANSPERINEAL PLACEMENT OF BIODEGRADABLE MATERIAL SHAHEEN-PROSTATIC INJ 98248 - [place] PLCMNT INTERSTITIAL DEV RADIATION THERAPY GUIDANCE PROSTATE Indications: Katerin Joseph is an 68 y.o. male who is having surgery for placement of fiducial markers and rectal spacer in preparation for an upcoming course of CyberKnife SBRT. Surgeon(s) & Rubber Press Tender(s) * Robbie Gimenez MD - Primary Anesthesia: Monitor Anesthesia Care ASA: II Estimated Blood Loss: Minimal Drains: * No LDAs found * Specimen: none Procedure Details: The patient was placed in the dorsolithotomy position using yellowfin stirrups. Lidocaine jelly was placed in the rectum. The ultrasound probe was placed in the rectum and attached to the stepper stabilizer. A bilateral pudendal nerve block was performed using standard technique with 1% lidocaine solution. A total of 8 fiducial markers were placed in the prostate gland given its extremely large size. The needle was attached to the first syringe and inserted through the rectourethralis muscle. The needle tip was advanced into the perirectal fat just posterior to the prostate gland. The needle position was confirmed both sagittal and axial villarreal. All 3 syringes were used to create optimal spacing between the prostate and rectum. Generous sagittal and axial ultrasound imaging was utilized throughout the procedure. No suspected penetration or compromise of the rectal wall occurred. The patient was taken to the recovery room in stable condition. The patient and his were warned about the possibility of blood in his urine, stool and or ejaculate. They were cautioned about signs and symptoms of infection. The patient was advised to go to his local emergency room if he is unable to urinate after hours. He will receive a phone call from our office within the next several days to confirm his next appointment here for treatment planning. Findings: He has an extremely enlarged prostate gland going completely off the creatinine on the ultrasound monitor. For this reason 8 fiducial markers were utilized (2 packages). Complications: None; patient tolerated the procedure well. Disposition: PACU - hemodynamically stable. Condition: stable [facility] 11-11-2023 History and physi jessica note Assessment/Plan 68-year-old male with favorable intermediate risk prostate cancer presents for placement of fiducial markers and rectal spacer in preparation for an upcoming course of CyberKnife SBRT. Subjective Katerin Joseph is an 68 y.o. male with stage T1c prostate cancer with PSA 6.6 and Woodway score 3+4 adenocarcinoma involving 1 core biopsy and a 129 g prostate gland. HPI: I met with this patient for consultation on 11/01/2023 and he wished to move forward with definitive treatment for his prostate cancer using CyberKnife SBRT. He lives [place] [facility]. An MRI ordered to evaluate his left hip mentioned a possible prostate nodule leading up to his prostate cancer evaluation. Past Surgical History: Procedure Laterality Date ANKLE FRACTURE SURGERY Left LASIK Bilateral PROSTATE BIOPSY 09/30/2023 Vida 3+4 ROTATOR CUFF REPAIR Right TONSILLECTOMY US GROIN/INGUINAL HERNIA Right Review of Systems Constitutional: Negative. HENT: Negative. Eyes: Negative. Respiratory: Negative. Cardiovascular: Negative. Gastrointestinal: Negative. Endocrine: Negative. Genitourinary: Negative. Musculoskeletal: Negative. Skin: Negative. Breast: negative. Allergic/Immunologic: Negative. Neurological: Negative. Hematological: Negative. Psychiatric/Behavioral: Negative. Objective Visit Vitals BP (!) 171/85 (BP Location: Left arm, Patient Position: Lying) Pulse 72 Temp 36.2 C (97.2 F) (Temporal) Resp 14 Ht 1.765 m (69.5) Wt 73.9 kg (162 lb 14.7 oz) SpO2 98% BMI 23.71 kg/m Smoking Status Never BSA 1.9 m Physical Exam Vitals and nursing note reviewed. Constitutional: Appearance: Normal appearance. He is normal weight. HENT: Head: Normocephalic and atraumatic. Nose: Nose normal. Mouth/Throat: Mouth: Mucous membranes are moist. Eyes: Extraocular Movements: Extraocular movements intact. Pupils: Pupils are equal, round, and reactive to light. Cardiovascular: Rate and Rhythm: Normal rate and regular rhythm. Pulses: Normal pulses. Heart sounds: Normal heart sounds. Pulmonary: Effort: Pulmonary effort is normal. Breath sounds: Normal breath sounds. Abdominal: General: Abdomen is flat. Palpations: Abdomen is soft. Musculoskeletal: General: Normal range of motion. Cervical back: Normal range of motion and neck supple. Skin: General: Skin is warm and dry. Neurological: General: No focal deficit present. Mental Status: He is alert and oriented to person, place, and time. Psychiatric: Mood and Affect: Mood normal. Behavior: Behavior normal. [facility] 11-11-2023 History and physi jessica note Assessment/Plan 68-year-old male with favorable intermediate risk prostate cancer presents for placement of fiducial markers and rectal spacer in preparation for an upcoming course of CyberKnife SBRT. Subjective Katerin Joseph is an 68 y.o. male with stage T1c prostate cancer with PSA 6.6 and Woodway score 3+4 adenocarcinoma involving 1 core biopsy and a 129 g prostate gland. HPI: I met with this patient for consultation on 11/01/2023 and he wished to move forward with definitive treatment for his prostate cancer using CyberKnife SBRT. He [place] north of [facility]. An MRI ordered to evaluate his left hip mentioned a possible prostate nodule leading up to his prostate cancer evaluation. Past Surgical History: Procedure Laterality Date ANKLE FRACTURE SURGERY Left LASIK Bilateral PROSTATE BIOPSY 09/30/2023 Woodway 3+4 ROTATOR CUFF REPAIR Right TONSILLECTOMY US GROIN/INGUINAL HERNIA Right Review of Systems Constitutional: Negative. HENT: Negative. Eyes: Negative. Respiratory: Negative. Cardiovascular: Negative. Gastrointestinal: Negative. Endocrine: Negative. Genitourinary: Negative. Musculoskeletal: Negative. Skin: Negative. Breast: negative. Allergic/Immunologic: Negative. Neurological: Negative. Hematological: Negative. Psychiatric/Behavioral: Negative. Objective Visit Vitals BP (!) 171/85 (BP Location: Left arm, Patient Position: Lying) Pulse 72 Temp 36.2 C (97.2 F) (Temporal) Resp 14 Ht 1.765 m (69.5) Wt 73.9 kg (162 lb 14.7 oz) SpO2 98% BMI 23.71 kg/m Smoking Status Never BSA 1.9 m Physical Exam Vitals and nursing note reviewed. Constitutional: Appearance: Normal appearance. He is normal weight. HENT: Head: Normocephalic and atraumatic. Nose: Nose normal. Mouth/Throat: Mouth: Mucous membranes are moist. Eyes: Extraocular Movements: Extraocular movements intact. Pupils: Pupils are equal, round, and reactive to light. Cardiovascular: Rate and Rhythm: Normal rate and regular rhythm. Pulses: Normal pulses. Heart sounds: Normal heart sounds. Pulmonary: Effort: Pulmonary effort is normal. Breath sounds: Normal breath sounds. Abdominal: General: Abdomen is flat. Palpations: Abdomen is soft. Musculoskeletal: General: Normal range of motion. Cervical back: Normal range of motion and neck supple. Skin: General: Skin is warm and dry. Neurological: General: No focal deficit present. Mental Status: He is alert and oriented to person, place, and time. Psychiatric: Mood and Affect: Mood normal. Behavior: Behavior normal. documented in this encounter [facility] 11-09-2023 Nurse Note Nothing to eat or drink past midnight Shower. No powders, creams, lotions or perfume/cologne on skin. Antibacterial wash x2 COVID/Vaccination status/please bring card on DOS Arrival time:0615 Medications as instructed with sips of water on the morning of surgery:As noted Carb Loading (If Applicable)NA Assistive Devices:NA Bowel Prep (If Applicable)Enema as directed Please ensure you have a class c truck driver, age 18 or greater, and someone with your for 24 hours after anesthesia. No big decisions day after surgery due to anesthesia Maintenance Plumber: Spouse/Tdziw-[phone] Accept Emergency blood transfusion:Yes [facility] 11-01-2023 History of Presen t illness Narrative Images from the original note were not included. CYBERKNIFE TREATMENT PLANNING NOTE Patient Name (MRN): Katerin Joseph ([id number]) Radiation Oncologist: Robbie Gimenez MD : 1955 Date of Service: 11/01/23 A custom radiation plan will be constructed for Katerin Joseph. This Treatment Plan is an order of the services required to initiate tumor localization, dosimetry and imaging associated with treatment delivery. This Treatment Plan may be subject to change throughout the planning process to optimize treatment. The final prescription, reflecting treatment parameters, modality, dose, fractionation, energy, beam arrangement, image guidance, and any additional information will be provided in an electronic prescription in ARIA after my review and approval of the final dosimetry. DIAGNOSIS AND STAGE Cancer Staging Prostate cancer ([facility]) Staging form: Prostate, AJCC 8th Edition - Clinical stage from 09/30/2023: Stage IIB (cT1c, cN0, cM0, PSA: 6.6, Grade Group: 2) - Signed by Robbie Gimenez MD on 11/01/2023 PLANNED PRESCRIPTION Treatment Site: prostate Technique: SRS/SBRT (CyberKnife) Frequency: Daily Treatment Volume Dose (cGy) Fractions ptv 3625 5 NOTES: PTV MARGIN [x] PTV Margin? [] Isotropic [x] Anisotropic mm SUP 5 mm INF 5 mm ANT 5 mm POST 3 mm RIGHT 5 mm LEFT 5 mm Notes: CONSULTATIONS [x] Special Medical Physics Consultation Reason: SRS/SBRT [] Surgeon: Notes: NORMAL STRUCTURE CONSTRAINTS If listed below, I plan to use the following dose constraints for normal structures. These are planning dose objectives and are subject to modification and deviation based upon clinical judgement. I will review dose-volume parameters and dose distribution for all targets and structures in the plan in the radiation treatment planning system. My final approval will be provided in the treatment planning system. NORMAL TISSUE OBJECTIVES Priority Organ Dose Volume ([place]) Dose Volume (Acceptable) Reference 1 Rectum 3800 cGy <0.03 cc 4000 cGy <0.03 cc NRG -005 1 Rectum 3500 cGy <3.0 cc 3600 cGy <3.0 cc NRG -005 1 Rectum 3200 cGy <10% 3400 cGy <10% NRG -005 1 Rectum 2500 cGy <20% 3000 cGy <20% NRG -005 1 Rectum 1800 cGy <50% 1900 cGy <50% NRG -005 2 Bladder 3900 cGy <0.03 cc 4000 cGy <0.03 cc NRG -005 2 Bladder 1500 cGy cGy <50% 2000 cGy <50% NRG -005 2 Bowel_Small 2000 cGy <0.03 cc 3000 cGy <0.03 cc NRG -005 2 Bowel_Small 1800 cGy <5.0 cc 2 Urethra 3878 cGy <0.03 cc 4350 cGy <0.03 cc NRG -005 3 Penile Bulb 3625 cGy <0.03 cc NRG -005 3 Penile Bulb 1990 cGy <3.0 cc NRG -005 3 Femur_Head_R 1560 cGy <10.0 cc NRG -005 3 Femur_Head_R 1990 cGy <1.0 cc NRG -005 3 Femur_Head_L 1560 cGy <10.0 cc NRG -005 3 Femur_Head_L 1990 cGy <1.0 cc NRG -005 3 Femur_Head_R 2000 cGy <10 cc NRG -005 3 Femur_Head_L 2000 cGy <10 cc NRG -005 3 Skin 3000 cGy <0.03 cc NRG -005 RADIATION TREATMENT PLANNING SIMULATION ORDER Rad Onc Treatment Planning Simulation Ordered at: 11/01/23 1050 [facility]: [facility] Scheduling location? [facility]? Cyberknife Simulation Type: CT Image Fusion? Yes Type, Series, and Date of Service: MRI Approximate Dose: 3,625 Measurement Unit: cGy Approximate Fractions: 5 Is Boost / Cone down anticipated? No Concurrent Chemotherapy? No Planned Start Date: Standard Treatment Site: Prostate Treatment Technique: SBRT SpaceOAR? Yes Urethrogram? No Fiducial Needed? Yes Treatment Goal: Curative Has the pt received prior radiation? No Pacemaker, ICD, or any Implanted Device? No Does the pt need an interpreter and translator? No Has the patient been consented? No Clinical Trial? No Patient Position? Supine Head / Neck Position? Neutral Arms Position? Sides Legs Position? Neutral Immobilization Device(s)? Vac-Sirena NPO / Void? Bladder Empty Rectum Empty Marker/Tracking Type? Tracking Tracking Type: Fiducial IGRT anticipated? Yes Do you anticipate the field size being >20 cm? (i.e. whole pelvis, 3 field breast): No Contrast Needed? No Is this for a new course of treatment? Yes CrCl cannot be calculated (No successful lab value found.). Images from the original note were not included. RADIATION ONCOLOGY CONSULTATION Patient Name (MRN): Katerin Joseph ([id number]) Radiation Oncologist: Robbie Gimenez MD : 1955 Date of Service: 11/01/2023 Referring Physician: Flaquito Cool MD ASSESSMENT This is a 68 y.o. male with favorable intermediate risk prostate cancer stage T1c with PSA 6.6 and Woodway score 3+4. The patient's stage is as below: Cancer Staging Prostate cancer (CMS/HCC) Staging form: Prostate, AJCC 8th Edition - Clinical stage from 09/30/2023: Stage IIB (cT1c, cN0, cM0, PSA: 6.6, Grade Group: 2) - Signed by Robbie Gimenez MD on 11/01/2023 PLAN 1. Role for Radiation Therapy / Shared Decision Making. Today I did review with the patient the role for radiation therapy as well as the risks, benefits, alternatives as well as short/mcc side effects. The patient agrees to proceed with radiation therapy. 2. Technique for Radiation Therapy. We discussed all radiation options and he is interested in CyberKnife SBRT for delivery of extreme hypofractionated radiation. 3. Next Steps. We will next arrange for fiducial marker and rectal spacer placement. He will eventually return for CT and MRI simulation. He will receive a dose of 36.25 Faria delivered in 5 fractions. We discussed the process of treatment as well as the potential short and long-term side effects especially as it relates to urinary incontinence and impotence. Thank you for allowing us to participate in the multidisciplinary care of this patient. HISTORY OF PRESENT ILLNESS Katerin Joseph is a 68 y.o. male with a brother with history of prostate cancer. Earlier this year he had an elevated PSA of 6.6. He underwent an MRI of his left hip and there was mention made of a possible prostate nodule. He underwent prostate biopsy 09/30/2023 showing Woodway score 3+4 adenocarcinoma involving 1 core biopsy and a 129 g prostate gland. He met with Dr. Cool to discuss treatment options and he and his are here this afternoon to specifically learn more about CyberKnife SBRT. [place] of [facility]. 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 SOCIAL HISTORY Social History Socioeconomic History Marital status: Spouse name: courtney Number of children: Not on file Years of education: Not on file Highest education level: Not on file Occupational History Occupation: self employed Tobacco Use Smoking status: Never Smokeless tobacco: Never Vaping Use Vaping status: Never Used Substance and Sexual Activity Alcohol use: Never Drug use: Never Sexual activity: Not on file Other Topics Concern Not on file Social History Narrative Not on file ALLERGIES Allergies as of 11/01/2023 (No Known Allergies) MEDICATIONS Current Outpatient Medications Medication Sig Dispense Refill ACETAMINOPHEN ORAL Take by mouth. alfuzosin (UROXATRAL) 10 mg 24 hr tablet TAKE 1 TABLET BY MOUTH EVERY 24 HOURS AT BEDTIME FOR 30 DAYS levothyroxine (SYNTHROID, LEVOTHROID) 112 mcg tablet TAKE 1 TABLET BY MOUTH DAILY IN THE MORNING ON AN EMPTY STOMACH metFORMIN (GLUCOPHAGE) 500 mg tablet Take 1 tablet (500 mg total) by mouth 3 (three) times a day with meals. No current facility-administered medications for this encounter. REVIEW OF SYSTEMS Review of Systems Constitutional: Negative. HENT: Negative. Eyes: Negative. Respiratory: Negative. Cardiovascular: Negative. Gastrointestinal: Negative. Endocrine: Negative. Genitourinary: Negative. Musculoskeletal: Negative. Skin: Negative. Neurological: Negative. Hematological: Negative. Psychiatric/Behavioral: Negative. Breast: negative. IPSS score is 20 and is mostly dissatisfied with his quality of life due to urinary symptoms. SH IM score is is 22. PHYSICAL EXAMINATION BP (!) 145/83 Pulse 74 Temp 36.3 C (97.4 F) (Temporal) Resp 16 Ht 1.778 m (70) Wt 74.4 kg (164 lb) BMI 23.53 kg/m ECOG Performance Status: 0 Physical Exam Vitals and nursing note reviewed. Constitutional: Appearance: Normal appearance. He is normal weight. HENT: Head: Normocephalic and atraumatic. Nose: Nose normal. Mouth/Throat: Mouth: Mucous membranes are moist. Eyes: Extraocular Movements: Extraocular movements intact. Pupils: Pupils are equal, round, and reactive to light. Cardiovascular: Rate and Rhythm: Normal rate and regular rhythm. Pulses: Normal pulses. Heart sounds: Normal heart sounds. Pulmonary: Effort: Pulmonary effort is normal. Breath sounds: Normal breath sounds. Abdominal: General: Abdomen is flat. Palpations: Abdomen is soft. Musculoskeletal: General: Normal range of motion. Cervical back: Normal range of motion and neck supple. Skin: General: Skin is warm and dry. Neurological: General: No focal deficit present. Mental Status: He is alert and oriented to person, place, and time. Psychiatric: Mood and Affect: Mood normal. Behavior: Behavior normal. DATA ANALYSIS I have personally reviewed the imaging in PACS, pathology and any additional reports as described above. QUESTIONAIRES/SCREENING The PHQ-2/PHQ-9 questionnaire was administered to screen for depression. The patient's scores are as below: PHQ-2: 0 PHQ-9: 0 documented in this encounter [facility] 09-20-2023 Telephone encount er Note Returned pts vm, he said he wanted sylvie in [place] gave him next available which was 11/21/2023. He said his called a different [facility] office and will called our office back if he didn't want sylvie with the other office. [facility] 09-20-2023 Miscellaneous Notes Formattin g of this note might be different from the original. Returned pts vm, he said he wanted sylvie in [place] gave him next available which was 11/21/2023. He said his called a different [facility] office and will called our office back if he didn't want sylvie with the other office. documented in this encounter [facility] Evaluation note Diagnosis Chronic sinusitis, unspecified documented in this encounter [facility] note* Diagnosis Chronic sinusitis, unspecified- Primary Chronic sinusitis, unspecified documented in this encounter [facility] note* Diagnosis Pain in unspecified knee Effusion, left knee documented in this encounter [facility] note* Diagnosis Pain in unspecified knee Edema, unspecified documented in this encounter [facility] note* Diagnosis Prostate cancer (CMS/HCC)- Primary Malignant neoplasm of prostate Malignant neoplasm of prostate (CMS/HCC) Malignant neoplasm of prostate documented in this encounter [facility] note* Diagnosis Prostate cancer (CMS/HCC) Malignant neoplasm of prostate documented in this encounter [facility] note* Diagnosis Cancer of prostate (CMS/HCC)- Primary Malignant neoplasm of prostate documented in this encounter [facility] note* Diagnosis Pain, unspecified- Primary Edema, unspecified documented in this encounter [facility] note* Diagnosis Pain in unspecified knee- Primary Effusion, left knee Pain, unspecified Edema, unspecified Pain in unspecified knee Edema, unspecified Pain in unspecified knee Effusion, left knee documented in this encounter [facility] note* Diagnosis Prostate cancer (CMS/HCC)- Primary Malignant neoplasm of prostate documented in this encounter [facility] note* Diagnosis Cancer of prostate (CMS/HCC)- Primary Malignant neoplasm of prostate documented in this encounter [facility] Discharge instructions* Attachments The following attachments cannot be sent through Care Everywhere. * Anesthesia: General: General Info (Belarusian) documented in this [facility] Family History No Family History Records FoundNo Family History Records FoundNo Family History Records FoundNo Family History Records Found Advance Directives No Advanced Directives Records FoundNo Advanced Directives Records FoundNo Advanced Directives Records FoundNo Advanced Directives Records Found Reason for Referral Specialty Diagnoses / Procedures Referred By Contac t Referred To Contact Radiology Diagnoses Chronic sinusitis, unspecified Procedures CT maxillofacial wo IV contrast Prisca Jiang, POOJA - PEGGY [address] [place] [address] Referral ID Status Reason Start Date Expiration Date Visits Re quested Visits Authorized [id number] Closed 04/22/2023 04/21/2024 1 1 Specialty Diagnoses / Procedures Referred By Contac t Referred To Contact Radiology Diagnoses Pain in unspecified knee Effusion, left knee Procedures MR knee left wo contrast Prisca Jiang, SALES HOST - [employer] [address] [place] [address] Referral ID Status Reason Start Date Expiration Date Visits Re quested Visits Authorized [id number] Closed 09/03/2023 09/02/2024 1 1 Specialty Diagnoses / Procedures Referred By Contac t Referred To Contact Radiology Diagnoses Pain in unspecified knee Edema, unspecified Procedures MR hip left wo Prisca Jiang, SALES HOST - [employer] [address] [place] [address] Referral ID Status Reason Start Date Expiration Date Visits Re quested Visits Authorized [id number] Closed 09/03/2023 09/02/2024 1 1 Specialty Diagnoses / Procedures Referred By Contac t Referred To Contact Radiation Oncology Diagnoses Prostate cancer (CMS/HCC) Procedures Rad Onc Treatment Planning Simulation Robbie Gimenez MD [address] [address] Referral ID Status Reason Start Date Expiration Date V isits Requested Visits Authorized [id number] Pending Review 11/01/2023 10/31/2024 1 1 Specialty Diagnoses / Procedures Referred By Contac t Referred To Contact Radiology Diagnoses Prostate cancer (CMS/HCC) Procedures MR Prostate wo Contrast Robbie Gimenez MD [address] [address] [facility] [place] Referral ID Status Reason Start Date Expiration Date V isits Requested Visits Authorized [id number] Authorized 11/02/2023 11/01/2024 1 1 Specialty Diagnoses / Procedures Referred By Contac t Referred To Contact Radiology Diagnoses Pain, unspecified Edema, unspecified Procedures CT hip right wo IV contrast Prisca Jiang, SALES HOST - [employer] [address] [place] [address] Referral ID Status Reason Start Date Expiration Date V isits Requested Visits Authorized [id number] Pending Review 09/03/2023 09/02/2024 1 1 Additional Source Comments (unrecognized sect ion and content) No Status Records FoundNo Status Records FoundNo Status Records FoundNo Status Records Found INFORMATION SOURCE (unrecogn ized section and content) DATE CREATED AUTHOR 10/12/2017 [facility] DATE CREATED AUTHOR AUTHOR'S ORGANIZ ATION 09/20/[address] [facility] DATE CREATED AUTHOR AUTHOR'S ORGANIZ ATION 01/04/2024 [facility] DATE CREATED AUTHOR AUTHOR'S ORGANIZ ATION 03/31/2024 [facility] Care Teams (unrecognized sec tion and content) [employer] Relationship Specialty Start Date End Date Prisca Jiang APRN - CNP [address] [place] [address] PCP - General Nurse Practitioner 04/22/23 [employer] Relationship Specialty Start Date End Date Prisca Jiang APRN - CNP [address] [place] [address] PCP - General Nurse Practitioner 04/22/23 [employer] Relationship Specialty Start Date End Date Prisca Jiang APRN - CNP [address] [place] [address] PCP - General Nurse Practitioner 04/22/23 [employer] Relationship Specialty Start Date End Date Prisca Jiang APRN - CNP [address] [place] [address] PCP - General Nurse Practitioner 04/22/23 [employer] Relationship Specialty Start Date End Date Prisca Jiang APRN - CNP [address] [place] [address] PCP - General Nurse Practitioner 04/22/23 Migel Chowdhury MD [address] [place] [address] [address] [place] [address] Surgeon Urology 09/20/23 [employer] Relationship Specialty Start Date End Date Prisca Jiang NP [address] [place] [address] PCP - General 11/01/23 [employer] Relationship Specialty Start Date End Date Prisca Jiang NP [address] [place] [address] PCP - General 11/01/23 [employer] Relationship Specialty Start Date End Date Prisca Jiang NP [address] [place] [address] PCP - General 11/01/23 [employer] Relationship Specialty Start Date End Date Prisca Jiang NP [address] [place] [address] PCP - General 11/01/23 [employer] Relationship Specialty Start Date End Date Prisca Jiang NP [address] [place] [address] PCP - General 11/01/23 [employer] Relationship Specialty Start Date End Date Prisca Jiang NP [address] [place] [address] PCP - General 11/01/23 [employer] Relationship Specialty Start Date End Date Prisca Jiang NP [address] [place] [address] PCP - General 11/01/23 [employer] Relationship Specialty Start Date End Date Prisca Jiang APRN - CNP [address] [place] [address] PCP - General Nurse Practitioner 04/22/23 Migel Chowdhury MD [address] [place] [address] Surgeon Urology 09/20/23 [employer] Relationship Specialty Start Date End Date Prisca Jiang APRN - CNP [address] [place] [address] PCP - General Nurse Practitioner 04/22/23 Migel Chowdhury MD [address] [place] [address] Surgeon Urology 09/20/23 [employer] Relationship Specialty Start Date End Date Prisca Jiang NP [address] [place] [address] PCP - General 11/01/23 Reason for Visit (unrecogniz ed section and content) Specialty Diagnoses / Procedures Referred By Contac t Referred To Contact Radiology Diagnoses Chronic sinusitis, unspecified Procedures CT maxillofacial wo IV contrast Prisca Jiang APRN - CNP [address] [place] [address] Referral ID Status Reason Start Date Expiration Date Visits Re quested Visits Authorized [id number] Closed 04/22/2023 04/21/2024 1 1 Specialty Diagnoses / Procedures Referred By Contac t Referred To Contact Radiology Diagnoses Pain in unspecified knee Effusion, left knee Procedures MR knee left wo contrast Prisca Jiang APRN - [employer] [address] [place] [address] Referral ID Status Reason Start Date Expiration Date Visits Re quested Visits Authorized [id number] Closed 09/03/2023 09/02/2024 1 1 Specialty Diagnoses / Procedures Referred By Contac t Referred To Contact Radiology Diagnoses Pain in unspecified knee Edema, unspecified Procedures MR hip left wo Prisca Jiang, SALES HOST - [employer] [address] [place] [address] Referral ID Status Reason Start Date Expiration Date Visits Re quested Visits Authorized [id number] Closed 09/03/2023 09/02/2024 1 1 Reason Comments Consult Prostate cancer Specialty Diagnoses / Procedures Referred By Josefaac t Referred To Contact Diagnoses Malignant neoplasm of prostate (CMS/HCC) Procedures NH TRANSPERINEAL PLACEMENT OF BIODEGRADABLE MATERIAL SHAHEEN-PROSTATIC INJ NH PLCMNT INTERSTITIAL DEV RADIATION THERAPY GUIDANCE PROSTATE TRANSPERINEAL PLACEMENT OF FIDUCIAL MARKERS AND TRANSPERINEAL PLACEMENT OF GEL Robbie Gimenez MD [address] [place] [address] [facility] [address] [place] [address] Referral ID Status Reason Start Date Expiration Date Visits Re quested Visits Authorized [id number] 1 1 Specialty Diagnoses / Procedures Referred By Rahel t Referred To Contact Radiology Diagnoses Prostate cancer (CMS/HCC) Procedures MR Prostate wo Contrast Robbie Gimenez MD [address] [address] [facility] Referral ID Status Reason Start Date Expiration Date V isits Requested Visits Authorized [id number] Authorized 11/02/2023 11/01/2024 1 1 Scheduled Active and Recently Administ ered Medications (unrecognized section and content) Medication Order 11/09/2023 11/10/2023 11/11/2023 acetaminophen (TYLENOL) tablet 650 mg 650 mg, oral, Once, On Manuela 11/11/23 at 0930, For 1 dose, Recovery (only), Scheduled medication for mild pain 0930 (Canceled Entry - Provider: Automatic Discharge Provider - Comment: Automatically canceled at discontinue of medication order) ceFAZolin (ANCEF) 2 gram/20 mL IV syringe 2 g (COMPLETED) 2 g, intravenous, Administer over 3 Minutes, Once, On Manuela 11/11/23 at 0645, For 1 dose, Preprocedure, If patient less than 120kg (administer within 60 minutes of incision), Indication: Prophylaxis-Surgical 0820 (Given - Provid er: Jatinder Gonzalez MD) Continuous Medication Order 11/09/2023 11/10/2023 11/11/2023 lactated Ringer's infusion 100 mL/hr, intravenous, Continuous, Starting on Manuela 11/11/23 at 0645, Preprocedure 0809 (New Bag - Prov ider: Jatinder Gonzalez MD)1203 (Due: Stopped) Oxygen Therapy, Adult inhalation, Continuous, Starting on Manuela 11/11/23 at 0930, Recovery (only), Wean O2 to maintain saturation greater than 92% or at baseline SpO2. May discontinue O2 when saturation is maintained at greater than 92% or at baseline SpO2 on room air., Device: Nasal Cannula, Titrate Oxygen to keep O2 Sat. at or above: 92% 0930 (Canceled Entry - Provider: Automatic Discharge Provider - Comment: Automatically canceled at discontinue of medication order) PRN Medication Order 11/09/2023 11/10/2023 11/11/2023 albuterol 2.5 mg /3 mL (0.083 %) nebulizer solution 2.5 mg 2.5 mg, nebulization, Once as needed, wheezing, Starting on Manuela 11/11/23 at 0908, For 1 dose, Recovery (only) hydrALAZINE (APRESOLINE) injection 5 mg 5 mg, intravenous, Every 10 min PRN, systolic BP greater than:, 190, Starting on Manuela 11/11/23 at 0908, For 4 doses, Recovery (only), As needed for: -SBP GREATER than 190 mmHg -DBP GREATER than 95 mmHg HYDROmorphone (DILAUDID) injection 0.5 mg 0.5 mg, intravenous, Every 10 min PRN, severe pain or when therapies for moderate pain were not effective, Starting on Manuela 11/11/23 at 0908, For 6 doses, Recovery (only) lidocaine (PF) (XYLOCAINE-MPF) 1 % injection 0.2 mL 0.2 mL, intradermal, Once as needed, for IV insertion, Starting on Manuela 11/11/23 at 0622, For 1 dose, Preprocedure lidocaine (PF) (XYLOCAINE-MPF) 1 % injection (CANCELED) As needed, Starting on Manuela 11/11/23 at 0841, Intraprocedure 0841 (Given - Provid er: Robbie Gimenez MD) lidocaine 2 % mucosal jelly (CANCELED) As needed, Starting on Manuela 11/11/23 at 0841, Intraprocedure 0841 (Given - Provid er: Robbie Gimenez MD) ondansetron (PF) (ZOFRAN) injection 4 mg(Linked Group 1) 4 mg, intravenous, Every 8 hours PRN, vomiting, nausea, Starting on Manuela 11/11/23 at 0908, Recovery (only), -ONLY give IV if patient is unable to take orally. -If inadequate response within 30 minutes, proceed to next-line agent or contact provider if no further options ordered. ondansetron ODT (ZOFRAN-ODT) disintegrating tablet 4 mg(Linked Group 1) 4 mg, oral, Every 8 hours PRN, vomiting, nausea, Starting on Manuela 11/11/23 at 0908, Recovery (only), -Give IV if patient is unable to take orally. -If inadequate response within 30 minutes, proceed to next-line agent or contact provider if no further options ordered. For ODT tablets: -Do not remove from blister pack until just before administering. -Patient should allow tablet to dissolve on tongue. oxyCODONE (ROXICODONE) immediate release tablet 5 mg 5 mg, oral, Every 4 hours PRN, moderate pain or when therapies for mild pain were not effective, Starting on Manuela 11/11/23 at 0908, For 2 doses, Recovery (only) prochlorperazine (COMPAZINE) injection 10 mg(Linked Group 2) 10 mg, intravenous, Every 6 hours PRN, nausea, vomiting, Starting on Manuela 11/11/23 at 0908, Recovery (only), 2nd Line Option: -ONLY give IV if patient is unable to take orally. -Give IM if patient does not have IV Access -If inadequate response within 30 minutes, proceed to next-line agent or contact provider if no further options ordered. prochlorperazine (COMPAZINE) suppository 25 mg(Linked Group 2) 25 mg, rectal, Every 12 hours PRN, nausea, vomiting, Starting on Manuela 11/11/23 at 0908, Recovery (only), 2nd Line Option: -ONLY give NH if patient is unable to take orally and cannot receive IV/IM. -If inadequate response within 30 minutes, proceed to next-line agent or contact provider if no further options ordered. prochlorperazine (COMPAZINE) tablet 10 mg(Linked Group 2) 10 mg, oral, Every 6 hours PRN, nausea, vomiting, Starting on Manuela 11/11/23 at 0908, Recovery (only), 2nd Line Option: -Give IV or IM if patient is unable to take orally. -If inadequate response within 30 minutes, proceed to next-line agent or contact provider if no further options ordered. Linked Groups Order Group 1: ondansetron ODT (ZOFRAN-ODT) disintegrating tablet 4 mgJump to med 4 mg, oral, Every 8 hours PRN, vomiting, nausea, Starting on Manuela 11/11/23 at 0908, Recovery (only), -Give IV if patient is unable to take orally. -If inadequate response within 30 minutes, proceed to next-line agent or contact provider if no further options ordered. For ODT tablets: -Do not remove from blister pack until just before administering. -Patient should allow tablet to dissolve on tongue. Or ondansetron (PF) (ZOFRAN) injection 4 mgJump to med 4 mg, intravenous, Every 8 hours PRN, vomiting, nausea, Starting on Manuela 11/11/23 at 0908, Recovery (only), -ONLY give IV if patient is unable to take orally. -If inadequate response within 30 minutes, proceed to next-line agent or contact provider if no further options ordered. Group 2: prochlorperazine (COMPAZINE) tablet 10 mgJump to med 10 mg, oral, Every 6 hours PRN, nausea, vomiting, Starting on Manuela 11/11/23 at 0908, Recovery (only), 2nd Line Option: -Give IV or IM if patient is unable to take orally. -If inadequate response within 30 minutes, proceed to next-line agent or contact provider if no further options ordered. Or prochlorperazine (COMPAZINE) injection 10 mgJump to med 10 mg, intravenous, Every 6 hours PRN, nausea, vomiting, Starting on Manuela 11/11/23 at 0908, Recovery (only), 2nd Line Option: -ONLY give IV if patient is unable to take orally. -Give IM if patient does not have IV Access -If inadequate response within 30 minutes, proceed to next-line agent or contact provider if no further options ordered. Or prochlorperazine (COMPAZINE) suppository 25 mgJump to med 25 mg, rectal, Every 12 hours PRN, nausea, vomiting, Starting on Manuela 11/11/23 at 0908, Recovery (only), 2nd Line Option: -ONLY give NH if patient is unable to take orally and cannot receive IV/IM. -If inadequate response within 30 minutes, proceed to next-line agent or contact provider if no further options ordered. Ordered Prescriptions (unrec ognized section and content) Prescription Sig Dispensed Refills Start Date End Da te methylPREDNISolone (Medrol, Herrera,) 4 mg tablet Follow schedule on package instructions 21 tablet 2 11/24/2023 11/30/2023 FOR RECORDS PERTAINING TO PATIENTS WHO ARE OR HAVE BEEN ENROLLED IN A CHEMICAL DEPENDENCY/SUBSTANCEABUSE PROGRAM, SOME INFORMATION MAY BE OMITTED. This clinical summary was aggregated from multiple sources. Caution should be exercised in using it in the provision of clinical care. This summary normalizes information from multiple sources, and as a consequence, information in this document may materially change the coding, format and clinical context of patient data. In addition, data may be omitted in some cases. CLINICAL DECISIONS SHOULD BE BASED ON THE PRIMARY CLINICAL RECORDS. [employer] provides no warranty or guarantee of the accuracy or completeness of information in this document.
--- NOTE | 2024-12-14 07:00 | MRI_ITS ---
PROCEDURE: SPINE LUMBAR (ROUTINE) 12/14/2024 REASON FOR EXAM: RADICULOPATHY to left lower extremity; LBP TECHNIQUE: Procedure Code: MRISPL Modality: MR Procedure: SPINE LUMBAR (ROUTINE) COMPARISON: None provided. FINDINGS: Vertebrae: Numerous chronic appearing Schmorl's nodes are seen, including inferior T11, superior T12, inferior T12, superior L1, inferior L1, and superior L2 levels. No acute osseous signal changes are seen. Alignment: Satisfactory. No evidence of spondylolysis. Conus Medullaris: Unremarkable. Terminating at T12. L1-2: No significant spinal canal stenosis or neural foraminal narrowing is seen. L2-3: No significant spinal canal stenosis or neural foraminal narrowing is seen. L3-4: Mild posterior facet and ligamentum flavum hypertrophy is seen, jpfe-goraxkv-oocz-right. Mild broad-based disc protrusion is seen. No significant degree of spinal canal stenosis is noted. At least mild right neural foraminal narrowing is present. L4-5: Gkel-vq-vwjbmcbx posterior facet hypertrophy is seen. A very mild disc bulge is noted. No significant spinal canal stenosis is noted. Mild right and moderate left neural foraminal narrowing is seen. L5-S1: Olwp-ov-dowzcpns posterior facet hypertrophy is noted. A very mild right lateral disc protrusion is seen. No definite neural foraminal narrowing is noted. No spinal canal stenosis is seen at this level. Sacrum: Limited imaging of the sacrum and upper sacroiliac joints demonstrate mild degenerative changes. MRI/Spine Lumbar (Routine) IMPRESSION: Multilevel lumbar degenerative disc disease, as described. Reading Location: [place] [address]
--- NOTE | 2024-12-14 07:00 | MRI_ITS ---
PROCEDURE: LOWER EXT JOINT ONLY (ROUTINE) 12/14/2024 REASON FOR EXAM: Left hip PAIN With left lower extremity radiculopathy TECHNIQUE: MRI of the left hip without contrast. Multiplanar and multisequence images were obtained without IV contrast administration. COMPARISON: COMPARISON : None provided. FINDINGS: Limited imaging of the pelvis demonstrates marked, inhomogeneous, somewhat irregular prostatomegaly. Within the visualized pelvis, no free fluid is seen. Bone and Bone Marrow: No evidence of femoral head osteonecrosis. Mild bilateral hip joint degenerative changes are seen. Bilateral sacroiliac joints demonstrate minimal degenerative changes. No acute osseous signal changes are seen. Effusions: No significant joint effusion is evident. Soft Tissues: No area of abnormal muscle or tendon signal is seen. No soft tissue mass is evident. No acetabular labral tear is identified. MRI/Lower Ext Joint Only (Routine) IMPRESSION: 1. Marked, inhomogeneous, and somewhat irregular prostatomegaly. 2. Mild bilateral hip joint degenerative changes. Reading Location: [place] [address]
== END | disposition home or self-care (01) ==
PROVIDERS: PCP Physician Assistant; Referring Provider Physician Assistant; Visit Provider Physician Assistant
DX: M25.552 Pain in left hip (principal); M54.16 Radiculopathy, lumbar region
CPT/HCPCS: 72148; 73721